=== PATIENT | male | born 1965 | race Caucasian/White ===

== ENCOUNTER → 2018-10-09 15:02 | Outpatient (CLI) | payer MEDICARE, SELFPAY ==
[2018-10-09 16:52] LABS: Prostate Specific Ag Screen 0.3 ng/mL (0.0-4.0)
[2018-10-11 20:08] LABS: Free Lambda Lt Chains 3.7 mg/L (5.7-26.3)
[2018-10-13 15:25] LABS: Alpha-1-Globulin 0.3 g/dL (0.0-0.4); Gamma Globulin 0.4 g/dL (0.4-1.8); Protein, Total 6.7 g/dL (6.0-8.5)
[2018-10-14 14:14] LABS: Immunoglobulin G, Qn 403 mg/dL (700-1600)
[2018-10-15 06:17] LABS: Immunoglobulin A, Qn 30 mg/dL (90-386); Immunoglobulin M, Qn 13 mg/dL (20-172)
== END ==
PROVIDERS: Visit Provider Internal Medicine Medical Oncology
DX: Z12.5 Encounter for screening for malignant neoplasm of prostate (principal); M89.9 Disorder of bone, unspecified
CPT/HCPCS: 36415; 82784; 83883; 84155; 84165; 86334; G0103

== ENCOUNTER → 2018-10-17 10:38 | Outpatient (CLI) | payer MEDICARE, SELFPAY ==
--- NOTE | 2018-10-17 10:50 | CT_ITS ---
CT chest w con HISTORY: Lytic bony lesions, evaluate for primary carcinoma ITS.REASON: CANCER,LYTIC BONE LESIONS ORDERING PHYSICIAN: Judith Watts MD PATIENT AGE: 53 years COMPARISON: None TECHNIQUE: Axial images obtained following the administration of 75 mL of Isovue 370 . Sagittal, and coronal reformatted images are also generated and reviewed. All CT scans at the facility use one or more dose reduction, viz: automated exposure control, ma/kV adjustment per patient size (including targeted exams where dose is matched to indication, i.e. head), or iterative reconstruction technique. FINDINGS: No mediastinal or hilar mass or adenopathy. Small hiatal hernia is present. Small amount fluid is present in superior pericardial recess. There is a calcified granuloma in the right upper lobe. There are atelectatic changes in the lung bases posteriorly. No central obstructing lesions are evident. No suspicious pulmonary nodules. Intramedullary lucency involves the posterior aspect of the left third rib at 16 mm. There is old fracture of the right third rib anteriorly and fourth rib anteriorly. There is an old right seventh rib fracture. There is mild gynecomastia Upper abdominal images show a 6.5 cm hepatic cyst centrally and a 1.6 cm hepatic cyst in the left hepatic lobe. There is a small hiatal hernia. Gallstones are present. IMPRESSION: 1. No evidence of primary lung carcinoma. 2. Atelectatic changes are present in the lung bases. 3. There is a lucent lesion of the left third rib posteriorly suspicious for a metastatic focus. 4. Cholelithiasis
[2018-10-17 12:49] LABS: Prostate Specific Ag Screen 0.3 ng/mL (0.0-4.0)
[2018-10-18 16:15] LABS: Free Lambda Lt Chains 5.4 mg/L (5.7-26.3)
[2018-10-20 12:11] LABS: Immunoglobulin G, Qn 367 mg/dL (700-1600)
[2018-10-20 13:09] LABS: Albumin 3.6 g/dL (2.9-4.4); Alpha-1-Globulin 0.3 g/dL (0.0-0.4); Alpha-2-Globulin 1.1 g/dL (0.4-1.0); Gamma Globulin 0.4 g/dL (0.4-1.8); Protein, Total 6.5 g/dL (6.0-8.5)
[2018-10-20 14:11] LABS: Immunoglobulin A, Qn 26 mg/dL (90-386); Immunoglobulin M, Qn 12 mg/dL (20-172)
== END ==
PROVIDERS: PCP Emergency Medicine; Visit Provider Internal Medicine Medical Oncology
DX: C79.51 Secondary malignant neoplasm of bone (principal); Z12.5 Encounter for screening for malignant neoplasm of prostate
CPT/HCPCS: 36415; 71260; 82784; 83883; 84155; 84165; 86334; G0103; Q9967

== ENCOUNTER → 2018-11-10 10:52 | Outpatient (POV) | payer MEDICARE, OTHER, SELFPAY ==
[2018-11-10 10:57] VITALS: BP 153/94; PULSE 125; RESP 18
--- NOTE | 2018-11-10 11:32 | HMH.PMCON ---
Assessment and Plan (1) Low back pain Current visit: No Status: Chronic Qualifiers: Chronicity: chronic Category: Medical Code(s): M54.5 - Low back pain (2) Compression fracture of L3 lumbar vertebra Current visit: No Status: Chronic Category: Medical Code(s): S32.030A - Wedge compression fracture of third lumbar vertebra, initial encounter for closed fracture - Assessment and plan all Dx Assessment and Plan for all problems:: We will plan a L3 kyphoplasty for pain relief. We will also provide him with a back brace for additional support and comfort. This note was dictated using voice recognition software and may contain errors or omissions HPI - Data of Consult Consult date: 11/10/18 Requesting Physician: Jami Majano APRN Primary Care Provider: Davis Rios MD - Consult Narrative Reason for consult: Back pain secondary to compression fracture History of present illness: Mr. Mantilla is a 53 year old male resents today for consultation in regards to his back pain secondary to an L3 compression fracture. Patient was having back pain for quite some time and was seen in the ER where they ordered a CT scan of his back. Patient has an L3 compression fracture and potential malignancy. Patient was then seen by oncology where they did a biopsy and it was determined that he did have cancer. Patient also has osteopenia noted on the CT. He rates pain 10 out of 10. Patient is currently in a halfway. Patient is good to begin chemo treatments. Patient has not had a back brace. Patient states that he would like to just take care of the pain. CC: Jami Majano APRN [facility] History I have reviewed the patient's past medical history: Yes Medical History: Denies:: Cancer, Diabetes Mellitus Type 1, Diabetes Mellitus Type 2, Internal Pacemaker, Lung Disease, MRSA, Seizures Have you ever received a pneumonia vaccine?: No Have you received a flu vaccine this season?: Yes Other Surgeries: No: Pacemaker Amputation: No Fractures: No - *Social History Smoking Status: Never smoker Alcohol Intake: never Occupational Status: disabled Housing: assisted living facility Travel in the last 8 weeks: None - Psychiatric History Expresses thoughts of harming self/others: None Suicide Plan Description: No Plan *Family Hx:: Unable to obtain Review of Systems - Review of Systems ROS General: no recent weight change, no fever, no sleep disturbances Respiratory: no cough, no shortness of air, no recurring pulmonary infections Cardiovascular/Peripheral Vascular: No chest pain, No palpitations, no edema, no shortness of breath. Gastrointestinal: no incontinence, normal bowel movements reported Genitourinary: no incontinence Musculoskeletal: Back pain Psychiatric: normal mood/ affect Neurological: [denies weakness in extremities], [denies balance issues] Meds Home Medications Medication Instructions Recorded Confirmed Type Ibuprofen [Ibuprofen 600mg Tab] 600 mg PO Q6HP PRN #20 tab 09/02/18 11/06/18 Rx risperiDONE [Risperidone] 1 mg PO BID 09/02/18 11/06/18 History Naproxen Sodium [Naproxen ER 500mg 500 mg PO BID PRN #20 tab 09/23/18 11/06/18 Rx Tab] Furosemide [Lasix 40mg tab] 40 mg PO DAILY 10/23/18 11/06/18 History Hydrocodone/Acetaminophen [[place] 1 each PO BID 10/23/18 10/23/18 History 5-325 Tablet] Allergies Allergy/AdvReac Type Severity Reaction Status Date / Time No Known Allergies Allergy Verified 11/06/18 11:22 Objective Vital signs: Pulse Resp BP 125 H 18 153/94 H 11/10/18 10:57 11/10/18 10:57 11/10/18 10:57 Narrative: Physical Exam General: Alert and oriented x3, no acute distress, pleasant and cooperative, [on room air] Lungs: Resps E/U, Symmetrical chest expansion, Eyes: PERRL Musculoskeletal: Flexion and extension of lumbar spine somewhat guarded secondary to pain, deep tendon reflexes normal, strength in upper
--- NOTE | 2018-11-10 11:35 | P.CONS_ITS ---
Assessment and Plan (1) Low back pain Current visit: No Status: Chronic Qualifiers: Chronicity: chronic Category: Medical Code(s): M54.5 - Low back pain (2) Compression fracture of L3 lumbar vertebra Current visit: No Status: Chronic Category: Medical Code(s): S32.030A - Wedge compression fracture of third lumbar vertebra, initial encounter for closed fracture - Assessment and plan all Dx Assessment and Plan for all problems:: We will plan a L3 kyphoplasty for pain relief. We will also provide him with a back brace for additional support and comfort. This note was dictated using voice recognition software and may contain errors or omissions HPI - Data of Consult Consult date: 11/10/18 Requesting Physician: Jami Majano APRN Primary Care Provider: Davis Rios MD - Consult Narrative Reason for consult: Back pain secondary to compression fracture History of present illness: Mr. Mantilla is a 53 year old male resents today for consultation in regards to his back pain secondary to an L3 compression fracture. Patient was having back pain for quite some time and was seen in the ER where they ordered a CT scan of his back. Patient has an L3 compression fracture and potential malignancy. Patient was then seen by oncology where they did a biopsy and it was determined that he did have cancer. Patient also has osteopenia noted on the CT. He rates pain 10 out of 10. Patient is currently in a [facility]. Patient is good to begin chemo treatments. Patient has not had a back brace. Patient states that he would like to just take care of the pain. CC: Jami Majano APRN [facility] History I have reviewed the patient's past medical history: Yes Medical History: Denies:: Cancer, Diabetes Mellitus Type 1, Diabetes Mellitus Type 2, Internal Pacemaker, Lung Disease, MRSA, Seizures Have you ever received a pneumonia vaccine?: No Have you received a flu vaccine this season?: Yes Other Surgeries: No: Pacemaker Amputation: No Fractures: No - *Social History Smoking Status: Never smoker Alcohol Intake: never Occupational Status: disabled Housing: assisted living facility Travel in the last 8 weeks: None - Psychiatric History Expresses thoughts of harming self/others: None Suicide Plan Description: No Plan *Family Hx:: Unable to obtain Review of Systems - Review of Systems ROS General: no recent weight change, no fever, no sleep disturbances Respiratory: no cough, no shortness of air, no recurring pulmonary infections Cardiovascular/Peripheral Vascular: No chest pain, No palpitations, no edema, no shortness of breath. Gastrointestinal: no incontinence, normal bowel movements reported Genitourinary: no incontinence Musculoskeletal: Back pain Psychiatric: normal mood/ affect Neurological: [denies weakness in extremities], [denies balance issues] Meds Home Medications Medication Instructions Recorded Confirmed Type Ibuprofen [Ibuprofen 600mg Tab] 600 mg PO Q6HP PRN #20 tab 09/02/18 11/06/18 Rx risperiDONE [Risperidone] 1 mg PO BID 09/02/18 11/06/18 History Naproxen Sodium [Naproxen ER 500mg 500 mg PO BID PRN #20 tab 09/23/18 11/06/18 Rx Tab] Furosemide [Lasix 40mg tab] 40 mg PO DAILY 10/23/18 11/06/18 History Hydrocodone/Acetaminophen [[place] 1 each PO BID 10/23/18 10/23/18 History 5-325 Tablet] Allergies
== END ==
PROVIDERS: PCP Emergency Medicine; Visit Provider Clinical Nurse Specialist Family Health
DX: S32.030A Wedge compression fracture of third lumbar vertebra, initial encounter for closed fracture (principal)
CPT/HCPCS: 99202

== ENCOUNTER → 2018-11-12 09:19 | Outpatient (CLI) | payer MEDICARE, SELFPAY | PROVIDERS: PCP Internal Medicine Medical Oncology; Visit Provider Internal Medicine Medical Oncology | DX: M85.89 Other specified disorders of bone density and structure, multiple sites (principal); S32.030A Wedge compression fracture of third lumbar vertebra, initial encounter for closed fracture ==

== ENCOUNTER 2018-11-17 13:25 | Outpatient (CLI) | payer MEDICARE, OTHER, SELFPAY ==
[2018-11-17 13:20] VITALS: BP 122/74; PULSE 68; RESP 20; TEMP 36.9; O2SAT 94
[2018-11-17 13:40] VITALS: TEMP 36.9; O2SAT 95
== END 2018-11-17 13:45 | disposition home or self-care (01) ==
LOC: INF 13:25
PROVIDERS: Visit Provider Internal Medicine Medical Oncology
DX: Z51.11 Encounter for antineoplastic chemotherapy (principal); C90.00 Multiple myeloma not having achieved remission
CPT/HCPCS: 96401; J9041

== ENCOUNTER 2018-11-24 13:00 | Outpatient (CLI) | payer MEDICARE, OTHER, SELFPAY ==
[2018-11-24 13:35] VITALS: BP 128/74; PULSE 68; RESP 20; TEMP 36.9; O2SAT 95
== END 2018-11-24 14:00 | disposition home or self-care (01) ==
LOC: INF 13:16
PROVIDERS: Visit Provider Internal Medicine Medical Oncology
DX: C90.00 Multiple myeloma not having achieved remission (principal)
CPT/HCPCS: 96401; J9041

== ENCOUNTER 2018-11-27 12:05 | Outpatient (CLI) | payer MEDICARE, OTHER, SELFPAY ==
[2018-11-27 12:29] VITALS: BP 108/51; PULSE 82; RESP 18; TEMP 36.6; O2SAT 97
== END 2018-11-27 13:00 | disposition home or self-care (01) ==
LOC: INF 15:12
PROVIDERS: Visit Provider Internal Medicine Medical Oncology
DX: Z51.11 Encounter for antineoplastic chemotherapy (principal); C90.00 Multiple myeloma not having achieved remission
CPT/HCPCS: 96401; J9041

== ENCOUNTER → 2018-12-02 08:50 | Outpatient (POV) | payer MEDICARE, OTHER, SELFPAY ==
[2018-12-02 09:01] VITALS: BP 136/84; PULSE 99; RESP 18; O2SAT 99; BMI 25.7
--- NOTE | 2018-12-02 09:12 | HMH.PAINSOAP ---
[facility] Pain Management SOAP Note Subjective:: Patient is a pleasant 53-year-old white male who presents today for follow-up after L3 kyphoplasty. Patient states that he still has generalized pain however his back pain is significantly better. Patient is continuing therapy. He is trying to be more active. He rates his overall body pain a 9 out of 10. Patient is still following up with oncology. ROS General: no recent weight change, no fever, no sleep disturbances Respiratory: no cough, no shortness of air, no recurring pulmonary infections Cardiovascular/Peripheral Vascular: No chest pain, No palpitations, no edema, no shortness of breath. Musculoskeletal: Back pain, generalized pain Psychiatric: normal mood/ affect Neurological: Weakness bilateral lower extremities, needs stability while walking Objective:: Physical Exam General: Alert and oriented x3, no acute distress, pleasant and cooperative, [on room air] Lungs: Resps E/U, Symmetrical chest expansion, Eyes: PERRL Musculoskeletal: Flexion and extension of lumbar spine somewhat guarded secondary to pain, deep tendon reflexes normal, strength in upper and lower extremities [4/5], [abnormal gait noted] Neurological: speech clear, paving bed maker equal, no gross sensory deficits Assessment:: Post kyphoplasty, compression fracture L3, multiple myeloma Plan:: We will follow-up with the patient in 2 months and reassess his symptoms at that time. Patient's been instructed to call the office if he has any issues prior to his next appointment. Dr. Hernandez has reviewed this note and agrees with this plan of care. This note was dictated using voice recognition software and may contain errors or omissions
--- NOTE | 2018-12-02 09:18 | P.CONS_ITS ---
[facility] Pain Management SOAP Note Subjective:: Patient is a pleasant 53-year-old white male who presents today for follow-up after L3 kyphoplasty. Patient states that he still has generalized pain however his back pain is significantly better. Patient is continuing therapy. He is trying to be more active. He rates his overall body pain a 9 out of 10. Patient is still following up with oncology. ROS General: no recent weight change, no fever, no sleep disturbances Respiratory: no cough, no shortness of air, no recurring pulmonary infections Cardiovascular/Peripheral Vascular: No chest pain, No palpitations, no edema, no shortness of breath. Musculoskeletal: Back pain, generalized pain Psychiatric: normal mood/ affect Neurological: Weakness bilateral lower extremities, needs stability while walking Objective:: Physical Exam General: Alert and oriented x3, no acute distress, pleasant and cooperative, [on room air] Lungs: Resps E/U, Symmetrical chest expansion, Eyes: PERRL Musculoskeletal: Flexion and extension of lumbar spine somewhat guarded secondary to pain, deep tendon reflexes normal, strength in upper and lower extremities [4/5], [abnormal gait noted] Neurological: speech clear, user experience lead equal, no gross sensory deficits Assessment:: Post kyphoplasty, compression fracture L3, multiple myeloma Plan:: We will follow-up with the patient in 2 months and reassess his symptoms at that time. Patient's been instructed to call the office if he has any issues prior to his next appointment. Dr. Hernandez has reviewed this note and agrees with this plan of care. This note was dictated using voice recognition software and may contain errors or omissions
== END ==
PROVIDERS: PCP Emergency Medicine; Visit Provider Clinical Nurse Specialist Family Health
DX: S32.030A Wedge compression fracture of third lumbar vertebra, initial encounter for closed fracture (principal); Z09 Encounter for follow-up examination after completed treatment for conditions other than malignant neoplasm; Z98.890 Other specified postprocedural states
CPT/HCPCS: 99213

== ENCOUNTER 2018-12-08 12:36 | Outpatient (CLI) | payer MEDICARE, OTHER, SELFPAY ==
[2018-12-08 12:41] VITALS: BMI 35.7
[2018-12-08 13:16] VITALS: BP 156/80; PULSE 105; RESP 20; TEMP 36.6; O2SAT 96
== END 2018-12-08 13:31 | disposition home or self-care (01) ==
LOC: INF 12:36
PROVIDERS: Visit Provider Internal Medicine Hematology & Oncology
DX: C90.00 Multiple myeloma not having achieved remission (principal); Z51.11 Encounter for antineoplastic chemotherapy
CPT/HCPCS: 96401; J9041

== ENCOUNTER 2018-12-11 13:05 | Outpatient (CLI) | payer MEDICARE, OTHER, SELFPAY ==
[2018-12-11 13:41] VITALS: BP 145/94; PULSE 105; RESP 18; TEMP 36.4; O2SAT 98
== END 2018-12-11 14:00 | disposition home or self-care (01) ==
LOC: INF 14:51
PROVIDERS: Visit Provider Internal Medicine Medical Oncology
DX: Z51.11 Encounter for antineoplastic chemotherapy (principal); C90.00 Multiple myeloma not having achieved remission
CPT/HCPCS: 96401; J9041

== ENCOUNTER 2018-12-15 12:56 | Outpatient (CLI) | payer MEDICARE, OTHER, SELFPAY ==
[2018-12-15 13:19] VITALS: BP 140/62; PULSE 68; RESP 20; TEMP 36.9; O2SAT 95
[2018-12-15 13:55] VITALS: BP 135/74; PULSE 68; O2SAT 95
== END 2018-12-15 13:57 | disposition home or self-care (01) ==
LOC: INF 12:56
PROVIDERS: Visit Provider Internal Medicine Medical Oncology
DX: Z51.11 Encounter for antineoplastic chemotherapy (principal); C90.00 Multiple myeloma not having achieved remission
CPT/HCPCS: 96401; J9041

== ENCOUNTER 2018-12-18 12:45 | Outpatient (CLI) | payer MEDICARE, OTHER, SELFPAY ==
[2018-12-18 13:45] VITALS: BP 127/78; PULSE 101; RESP 16; TEMP 36.9; O2SAT 96
[2018-12-18 16:35] LABS: Basophils % 0.1 % (0.1-2.0); Eosinophils # 0.1 K/mm3 (0.0-0.4); Eosinophils % 1.2 % (0.1-12.0); Hematocrit 26.8 % (42.0-52.0); Hemoglobin 8.8 g/dL (14.1-18.0); Lymphocytes # 1.2 K/mm3 (0.7-4.5); Lymphocytes % 12.8 % (10-50); Mean Corpuscular HGB Conc 32.8 g/dL (31.8-35.4); Mean Corpuscular Hemoglobin 32.1 pg (27.0-31.2); Mean Corpuscular Volume 97.8 fl (80-94); Mean Platelet Volume 12.3 fl (7.4-10.4); Monocytes # 0.3 K/mm3 (0.1-1.0); Monocytes % 3.8 % (1.7-9.3); Neutrophils # 7.5 K/mm3 (1.8-7.8); Neutrophils % 82.2 % (37.0-80.0); Platelet Count 158 K/mm3 (142-424); Red Blood Count 2.73 M/mm3 (4.60-6.20); Red Cell Distribution Width 14.6 % (11.5-17.5); White Blood Count 9.1 K/mm3 (4.8-10.8)
[2018-12-18 17:30] LABS: Alanine Aminotransferase 25 U/L (12-78); Albumin Level 3.1 gm/dL (3.4-5.0); Albumin/Globulin Ratio 1.1 (1.1-1.8); Alkaline Phosphatase 96 U/L (46-116); Anion Gap 13.7 mEq/L (5-15); Aspartate Amino Transferase 6 U/L (15-37); Bilirubin,Total 0.3 mg/dL (0.2-1.0); Blood Urea Nitrogen 15 mg/dL (7-18); Calcium 8.9 mg/dL (8.5-10.1); Carbon Dioxide 28 mmol/L (21.0-32.0); Chloride 100 mmol/L (98-107); Creatinine,Serum 1.41 mg/dL (0.70-1.30); Estimated Glomerular Filt Rate 53 ml/min (>60); GFR (African American) 64 ML/MIN (>60); Globulin 2.8 gm/dl (1.3-3.2); Glucose 91 mg/dL (74-106); Potassium 3.7 mmoL/L (3.5-5.1); Sodium 138 mmol/L (136-145); Total Protein,Serum 5.9 gm/dL (6.4-8.2)
[2018-12-20 17:11] LABS: Free Lambda Lt Chains 3.2 mg/L (5.7-26.3)
[2018-12-22 15:12] LABS: Alpha-1-Globulin 0.4 g/dL (0.0-0.4); Alpha-2-Globulin 1.1 g/dL (0.4-1.0); Gamma Globulin 0.3 g/dL (0.4-1.8); Protein, Total 5.8 g/dL (6.0-8.5)
== END 2018-12-18 14:00 | disposition home or self-care (01) ==
PROVIDERS: Visit Provider Internal Medicine Medical Oncology
DX: Z51.11 Encounter for antineoplastic chemotherapy (principal); C90.00 Multiple myeloma not having achieved remission
CPT/HCPCS: 36415; 80053; 83883; 84155; 84165; 85025; 96401; J9041

== ENCOUNTER 2018-12-31 17:44 | Inpatient (IN) ==
--- NOTE | 2018-12-31 18:27 | Emergency Department Note ---
ED Disposition Condition on Discharge: Fair - Critical Care Critical Care Time: No <Alex Ordonez - Last Filed: 12/31/18 20:03> <Davis Rios - Last Filed: 12/31/18 23:59> Clinical Impression: Cancer, Renal insufficiency, Fracture of transverse process of spine without spinal cord lesion Low back pain Qualifiers: Chronicity: chronic Back pain laterality: unspecified Sciatica presence: without sciatica Qualified Code(s): M54.5 - Low back pain; G89.29 - Other chronic pain Myeloma Qualifiers: Multiple myeloma remission status: not in remission Qualified Code(s): C90.00 - Multiple myeloma not having achieved remission Anemia Qualifiers: Anemia type: unspecified type Qualified Code(s): D64.9 - Anemia, unspecified Osteopenia Qualifiers: Osteopenia location: multiple sites Qualified Code(s): M85.89 - Other specified disorders of bone density and structure, multiple sites Compression fracture of first lumbar vertebra Qualifiers: Encounter type: initial encounter Fracture type: closed Qualified Code(s): S32.010A - Wedge compression fracture of first lumbar vertebra, initial encounter for closed fracture Compression fracture of fifth lumbar vertebra Qualifiers: Encounter type: initial encounter Fracture type: closed Qualified Code(s): S32.050A - Wedge compression fracture of fifth lumbar vertebra, initial encounter for closed fracture Compression fracture of L3 lumbar vertebra Qualifiers: Encounter type: subsequent encounter Fracture type: closed Fracture healing: with delayed healing Qualified Code(s): S32.030G - Wedge compression fracture of third lumbar vertebra, subsequent encounter for fracture with delayed healing Compression fracture of fourth lumbar vertebra Qualifiers: Encounter type: initial encounter Fracture type: closed Qualified Code(s): S32.040A - Wedge compression fracture of fourth lumbar vertebra, initial encounter for closed fracture Compression fracture of L2 lumbar vertebra Qualifiers: Encounter type: initial encounter Fracture type: closed Qualified Code(s): S32.020A - Wedge compression fracture of second lumbar vertebra, initial encounter for closed fracture Disposition: Admitted as Observation Attestation: On 12/31/18, the high probability of a clinically significant, sudden or life threatening deterioration of the following system(s) required my full and direct attention, intervention and personal management. The time I documented below is in addition to time spent performing reported procedures but includes the following listed in this critical care notation. Medical Decision Making - Jere Inquiry Pt receiving controlled substance: No - Physician Consults Physician Consulted: Gabriel Time: 19:20 Reason -: Pt condition Comment/Response: Discussed patient. He states that he saw the patient today at lunch. Patient was sitting in his chair and using a walker as he has been doing for the past few days. [facility]. He requests that patient be kept here until he arrives at 8 PM to evaluate. <Alex Ordonez - Last Filed: 12/31/18 20:03> - Lab Data Result diagrams: 12/31/18 20:25 12/31/18 20:25 <Davis Rios - Last Filed: 12/31/18 23:59> Vital Signs: 12/31/18 17:45 12/31/18 19:01 12/31/18 19:30 Temperature 99.3 F Temperature Source Oral Pulse Rate [Right] 113 H 97 H 96 H Respiratory Rate 20 20 Blood Pressure [Right Arm] 157/93 H 130/91 H 116/86 Blood Pressure Mean [Right Arm] 114 104 96 Blood Pressure Source [Right Arm] Automatic Cuff Automatic Cuff Automatic Cuff Blood Pressure Position [Right Arm] Supine Supine Supine 02 Sat by Pulse Oximetry 96 96 96 Oxygen Delivery Method Room Air Room Air Room Air 12/31/18 20:00 12/31/18 20:30 12/31/18 21:30 Temperature Temperature Source Pulse Rate [Right] 92 H 96 H 112 H Respiratory Rate 20 20 20 Blood Pressure [Right Arm] 124/81 135/94 H 145/98 H Blood Pressure Mean [Right Arm] 95 107 113 Blood Pressure Source [Right Arm] Automatic Cuff Automatic Cuff Automatic Cuff Blood Pressure Position [Right Arm] Supine Supine Supine 02 Sat by Pulse Oximetry 96 98 98 Oxygen Delivery Method Room Air Room Air Room Air 12/31/18 22:30 12/31/18 23:30 Temperature Temperature Source Pulse Rate [Right] 96 H 86 Respiratory Rate 18 18 Blood Pressure [Right Arm] 139/87 122/74 Blood Pressure Mean [Right Arm] 104 90 Blood Pressure Source [Right Arm] Automatic Cuff Automatic Cuff Blood Pressure Position [Right Arm] Supine Supine 02 Sat by Pulse Oximetry 98 98 Oxygen Delivery Method Room Air Room Air - Lab Data Lab Results 12/31/18 20:25: WBC 6.0, RBC 2.83 L, Hgb 9.0 L, Hct 27.5 L, MCV 97.0 H, MCH 31.9 H, MCHC 32.9, RDW 14.9, Plt Count 455 H, MPV 8.1, Neut % (Auto) 71.5, Lymph % (Auto) 17.0, [place] % (Auto) 10.5 H, Eos % (Auto) 0.6, Baso % (Auto) 0.5, Neut # (Auto) 4.3, Lymph # (Auto) 1.0, [place] # (Auto) 0.6, Eos # (Auto) 0.0, Baso # (Auto) 0.0 12/31/18 20:25: ESR 84 H 12/31/18 20:25: Sodium 140, Potassium 4.2, Chloride 103, Carbon Dioxide 27, Anion Gap 14.2, BUN 21 H, Creatinine 1.86 H, Estimated Creat Clear 44, Estimated GFR 38 L, Est GFR ( Amer) 46 L, Glucose 103, Calcium 9.3, Total Bilirubin 0.3, Direct Bilirubin 0.1, Indirect Bilirubin 0.2, AST 11 L, ALT 18, Alkaline Phosphatase 107, Troponin I < 0.02, Total Protein 6.5, Albumin 2.9 L 12/31/18 20:25: Lipase 120 Orders (Tests/Meds): ED MEDICATIONS Generic Name Dose Route Start Last Admin Trade Name Freq PRN Reason Stop Dose Admin Sodium Chloride 10 ml 12/31/18 20:27 Saline Flush 10ml Syringe IV 01/30/19 20:26 NEEDED PRN Maintain IV Site Discontinued Medications Generic Name Dose Route Start Last Admin Trade Name Freq PRN Reason Stop Dose Admin Ketorolac Tromethamine 30 mg 12/31/18 22:32 12/31/18 22:32 Toradol 30mg/Ml Vial IV 12/31/18 22:33 30 mg ONCE ONE Administration Morphine Sulfate 4 mg 12/31/18 22:45 12/31/18 22:54 Morphine 4mg/Ml Syringe IV 12/31/18 22:46 4 mg ONCE ONE Administration Ondansetron HCl 4 mg 12/31/18 22:45 12/31/18 22:54 Zofran 4mg/2ml Vial IV 12/31/18 22:46 4 mg ONCE ONE Administration ORDERS Category Date Time Status CT abdomen pelvis wo con Stat Cat Scan 12/31/18 20:[address] cervical spine wo con Routine Cat Scan 12/31/18 20:[address] lumbar spine wo con Stat Cat Scan 12/31/18 20:[address] thoracic spine wo con Stat Cat Scan 12/31/18 20:30 Taken XR chest AP Stat Exams 12/31/18 20:28 Taken UA [Urinalysis and Microscopic] Stat Lab 12/31/18 20:26 Ordered Medical Decision Narrative: Note from Dr. Watts Dec 18 indicates pt with lytic bone lesion of L3 and ileium based on ct scan. bone marrow bx c/w plasma cell myeloma. treating using RVD. continue current pain regimen ms contin 15 mg q 12 hr and percocet 10 mg q 4-6 hr prn. will eventually add zometa to regimen given his bone disease. proceed with treatment today. labs today including myeloma panel. he is a ash of the [facility]. will also plan to refer to for eval for possible bone marrow transplant. T-spine CT November: IMPRESSION: 1. No evidence of acute compression fracture of the thoracic spine. The abnormality noted on a plain film is likely related to bony overlap from the patient's scoliosis and degenerative change. 2. There is mild wedging of L1 and L2 which has developed since 09/23/2018. No retropulsion is evident. There is loss of height along the inferior endplate of L1 by approximately 25% and of the superior endplate of L2 by approximately 30% Dictated By: Janak Couch MD Signed By: <Electronically signed by Janak Couch MD in OV> 12/25/18 1311 L-spine CT August: IMPRESSION: 1. Mild acute wedge compression fracture of L3 which is felt to be a pathologic fracture. No obvious retropulsed fragments. 2. Lytic lesions of L3 and of the left ilium suspicious for metastatic disease. Suggest chest x-ray to look for possible primary. Dictated By: Janak Couch MD Signed By: <Electronically signed by Janak Couch MD in OV> 09/23/18 1410 8:00 PM: At shift change, I have discussed the patient with Dr. Rios, who will assume care of the patient at this time. I have discussed all clinical information including history, physical and diagnostic study results. Preliminary diagnoses based on information available at this point have been recorded by me. Controlled substance administration and critical care statement are also preliminary, as of the time of handoff. (Alex Ordonez) General Adult HPI - General Mode of Arrival: EMS Limitations: Physical Limitations Description of Symptoms (Recalled from ER Triage Doc. by RN): chronic back pain that is worse than normal. <Alex Ordonez - Last Filed: 12/31/18 20:03> <Davis Rios - Last Filed: 12/31/18 23:59> - General Chief complaint: Back Pain/Injury Stated complaint: back pain Time Seen by Provider: 12/31/18 18:27 - History of Present Illness HPI narrative: Brought in by ambulance from [facility]. He states that the physical therapist called an ambulance to have him brought over because he told the therapist he could not get up and walk because of his lower back pain. He states that his back pain is chronic, worse for several days. He has myeloma and is getting chemotherapy. His oncologist is Dr. Watts. He is on MS Contin and Percocet 10 mg for pain. He tells me that he is not otherwise sick. Denies fever. Says that when his back tightens up it makes it difficult for him to breathe. Denies abdominal pain, vomiting, diarrhea, or urinary symptoms. Denies cough. He tells me that he does not want any testing or treatment in the emergency room. He does not want an IV or blood work. He does not want any scans of any sort. He says he is already had scans. I reviewed his recent visits. He was in this emergency department on 12/25/18 for evaluation of a fever. I do not see any lab test done on that day, but he was discharged on Cipro. He had thoracic spine x-rays and CAT scans on that same date, but I cannot tell if they were done through the emergency room. These showed upper lumbar compression fractures that were new since his previous scan in August. He was diagnosed with thoracic and lumbar back pain in the emergency room, but I do not see any recording of x-ray or CT scan results were any diagnosis of compression fractures. (Alex Ordonez) - Related Data Home Medications Medication Instructions Recorded Confirmed risperiDONE [Risperidone] 1 mg PO BID 09/02/18 12/18/18 Furosemide [Lasix 40mg tab] 40 mg PO DAILY 10/23/18 12/18/18 Hydrocodone/Acetaminophen [Alvo 1 each PO BID 10/23/18 12/18/18 5-325 Tablet] Previous Rx's Medication Instructions Recorded Ibuprofen [Ibuprofen 600mg Tab] 600 mg PO Q6HP PRN #20 tab 09/02/18 Naproxen Sodium [Naproxen ER 500mg 500 mg PO BID PRN #20 tab 09/23/18 Tab] Ciprofloxacin HCl [Cipro 500mg 500 mg PO BID 7 Days #14 tab 12/25/18 Tab] Allergies Allergy/AdvReac Type Severity Reaction Status Date / Time No Known Allergies Allergy Verified 12/18/18 15:19 [facility] History - Hepatitis A Screen Drug use history?: No High risk sexual behaviors?: No History of sexually transmitted infection?: No Currently employed?: No Childcare worker?: No Do you have indoor plumbing?: Yes Do you have electricity?: Yes Medical History: Reports:: Cancer (spinal) Denies:: Diabetes Mellitus Type 1, Diabetes Mellitus Type 2, Internal Pacemaker, Lung Disease, MRSA, Seizures Laterality Cases: Left: Arthroscopy Hip, Total Hip Replacement Other Surgeries: No: Pacemaker Amputation: No Fractures: No - Social History Educational Level: Completed High School Smoking Status: Never smoker Alcohol Intake: never Occupational Status: unemployed, disabled Housing: assisted living facility - Psychiatric History Expresses thoughts of harming self/others: None Suicide Plan Description: No Plan Family Hx:: Unable to obtain <Alex Ordonez - Last Filed: 12/31/18 20:03> - Hepatitis A Screen Attestation statement:: This patient has been screened for Hepatitis A risk factors. ROS Obtained: Yes All systems reviewed & no additional complaints - Constitutional Constitutional: Denies fever(s), Reports weakness - Cardiovascular Cardiovascular: Denies chest pain - Respiratory Respiratory: Yes dyspnea (states related to back pain) - Gastrointestinal Gastrointestingal: Denies: abdominal pain, diarrhea, vomiting - Genitourinary Male Genitourinary: Denies difficulty urinating - Musculoskeletal Musculoskeletal: Reports back pain <Alex Ordonez - Last Filed: 12/31/18 20:03> Physical Exam - General General appearance: alert, in no apparent distress - Head Head exam: atraumatic, normocephalic - Eye Eye exam: Present: PERRL, EOMI - ENT ENT exam: Present: mucous membranes moist - Neck Neck exam: Present: normal inspection, trachea midline - Chest Chest inspection: Present: normal inspection, symmetric chest wall rise - Respiratory Respiratory exam: Present: normal lung sounds bilaterally. Absent: respiratory distress - Cardiovascular Cardiovascular exam: Present: normal rhythm, tachycardia, normal heart sounds - Abdominal Exam Abdominal exam: Present: distention, tenderness Abdominal tenderness: Present: diffuse - Extremities Exam Extremities exam: Present: other (Bilateral venous stasis changes and 1+ pitting edema) - Neurological Exam Neurological exam: Present: alert, oriented X3, CN II-XII intact, other (Sensory and motor intact in all 4 extremities and symmetric, no focal findings). Absent: motor sensory deficit - Psychiatric Psychiatric exam: Present: flat affect - Skin Skin exam: Present: warm, dry <Alex Ordonez - Last Filed: 12/31/18 20:03>
[2018-12-31 20:42] LABS: Basophils % 0.5 % (0.1-2.0); Eosinophils % 0.6 % (0.1-12.0); Hematocrit 27.5 % (42.0-52.0); Mean Corpuscular HGB Conc 32.9 g/dL (31.8-35.4); Mean Corpuscular Hemoglobin 31.9 pg (27.0-31.2); Mean Platelet Volume 8.1 fl (7.4-10.4); Monocytes # 0.6 K/mm3 (0.1-1.0); Monocytes % 10.5 % (1.7-9.3); Neutrophils # 4.3 K/mm3 (1.8-7.8); Neutrophils % 71.5 % (37.0-80.0); Platelet Count 455 K/mm3 (142-424); Red Blood Count 2.83 M/mm3 (4.60-6.20); Red Cell Distribution Width 14.9 % (11.5-17.5)
[2018-12-31 20:51] LABS: Alanine Aminotransferase 18 U/L (12-78); Albumin Level 2.9 gm/dL (3.4-5.0); Alkaline Phosphatase 107 U/L (46-116); Anion Gap 14.2 mEq/L (5-15); Aspartate Amino Transferase 11 U/L (15-37); Bilirubin,Direct 0.1 mg/dL (0.0-0.2); Bilirubin,Indirect 0.2 mg/dL (0.0-0.9); Bilirubin,Total 0.3 mg/dL (0.2-1.0); Blood Urea Nitrogen 21 mg/dL (7-18); Calcium 9.3 mg/dL (8.5-10.1); Carbon Dioxide 27 mmol/L (21.0-32.0); Chloride 103 mmol/L (98-107); Glucose 103 mg/dL (74-106); Potassium 4.2 mmoL/L (3.5-5.1); Sodium 140 mmol/L (136-145); Total Protein,Serum 6.5 gm/dL (6.4-8.2)
[2019-01-01 07:28] LABS: Anion Gap 13.2 mEq/L (5-15); Calcium 8.9 mg/dL (8.5-10.1); Potassium 4.2 mmoL/L (3.5-5.1)
--- NOTE | 2019-01-01 07:28 | Pharmacy Consult Notes ---
[facility] Pharmacy VTE Monitoring - Patient Demographics Admission date: 12/31/18 Report Date: 01/01/19 Time: 07:28 Allergies/Adverse Reactions: Patient Allergies No Known Allergies Allergy (Verified 12/18/18 15:19) Height: 1.65 m Weight: 78.642 kg Patient Problems: Current Active Problems Low back pain (Chronic) Compression fracture of L3 lumbar vertebra (Chronic) Cancer (Acute) Myeloma (Acute) Anemia (Acute) Renal insufficiency (Acute) Osteopenia (Acute) Compression fracture of first lumbar vertebra (Acute) Compression fracture of fifth lumbar vertebra (Acute) Compression fracture of fourth lumbar vertebra (Acute) Compression fracture of L2 lumbar vertebra (Acute) Fracture of transverse process of spine without spinal cord lesion (Acute) - VTE Risk Labs: VTE Related Lab Results Hgb 9.0 g/dL (14.1-18.0) L 12/31/18 20:25 Hct 27.5 % (42.0-52.0) L 12/31/18 20:25 Plt Count 455 K/mm3 (142-424) H 12/31/18 20:25 BUN 21 mg/dL (7-18) H 12/31/18 20:25 Creatinine 1.86 mg/dL (0.70-1.30) H 12/31/18 20:25 Estimated Creat Clear 44 mL/min (50-200) 12/31/18 20:25 Was VTE Risk Assessment Performed: Yes VTE Score: 6 VTE Risk Level: Moderate Risk - Prophylaxis VTE Prophylaxis Ordered?: Yes Types of VTE Prophylaxis: TEDS Knee High Location of Applied Device: Bilateral Lower Extremeties - VTE Diagnosis Confirmed Treatment or plan recommended: Continue Current Treatment
[2019-01-01 07:29] LABS: Basophils % 0.5 % (0.1-2.0); Eosinophils # 0.1 K/mm3 (0.0-0.4); Hematocrit 24.5 % (42.0-52.0); Hemoglobin 8.1 g/dL (14.1-18.0); Lymphocytes # 0.9 K/mm3 (0.7-4.5); Lymphocytes % 20.1 % (10-50); Mean Corpuscular Hemoglobin 32.5 pg (27.0-31.2); Mean Corpuscular Volume 98.7 fl (80-94); Mean Platelet Volume 7.8 fl (7.4-10.4); Monocytes # 0.4 K/mm3 (0.1-1.0); Monocytes % 8.8 % (1.7-9.3); Neutrophils % 68.6 % (37.0-80.0); Platelet Count 420 K/mm3 (142-424); Red Blood Count 2.48 M/mm3 (4.60-6.20); Red Cell Distribution Width 15.1 % (11.5-17.5); White Blood Count 4.4 K/mm3 (4.8-10.8)
--- NOTE | 2019-01-01 09:07 | History & Physical Report ---
*Admission Date: 12/31/18 *Chief complaint: Uncontrolled lower back pain *History of present illness: Brought in by ambulance from [facility]. He states that the physical therapist called an ambulance to have him brought over because he told the therapist he could not get up and walk because of his lower back pain. He states that his back pain is chronic, worse for several days. He has myeloma and is getting chemotherapy. His oncologist is Dr. Watts. He is on MS Contin and Percocet 10 mg for pain. [facility] History I have reviewed the patient's past medical history: Yes Medical History: Reports:: Cancer (spinal) Denies:: Diabetes Mellitus Type 1, Diabetes Mellitus Type 2, Internal Pacemaker, Lung Disease, MRSA, Seizures *Have you ever received a pneumonia vaccine?: No *Have you received a flu vaccine this season?: Yes (Fall 2017) Other Medical History: Reports: Chemotherapy Laterality Cases: Left: Arthroscopy Hip, Total Hip Replacement Other Surgeries: No: Pacemaker Amputation: No Fractures: No - *Social History Educational Level: Completed High School Smoking Status: Never smoker Alcohol Intake: former Alcohol Intake Frequency:: holidays/special occasions only *Occupational Status:: unemployed, disabled Housing: assisted living facility Household Members: other *Travel in the last 8 weeks: None - Psychiatric History Expresses thoughts of harming self/others: None Suicide Plan Description: No Plan Family Hx:: Unable to obtain Review of Systems - Review of Systems Review of systems:: pertinent systems reviewed and negative unless documented below - Constitutional Reports weakness - Eyes Denies change in vision - ENT Denies dizziness - *Cardiovascular Denies chest pain - *Respiratory Denies chest congestion, Denies cough - *Gastrointestinal Denies abdominal pain - *Genitourinary Reports difficulty urinating, Reports urinary incontinence Comments: Incont D/T inability to stand and walk D/T pain - *Musculoskeletal Reports abnormal walking, Reports back pain, Reports limited joint movement, Reports muscle weakness, Reports radiating pain into limb - Integumentary/Breasts Denies rash - *Neurologic Reports abnormal walking, Reports radiating pain, Reports weakness, Denies tingling/numbness/burning sensations - Psychiatric Denies abnormal sleep pattern, Denies anxiety - Endocrine Denies cold intolerance, Denies excessive sweating - Hematologic/Lymphatic Denies easy bleeding, Denies easy bruising - Allergic/Immunologic Denies GI upset with certain foods Meds Home Medications Medication Instructions Recorded Confirmed Type Ibuprofen [Ibuprofen 600mg Tab] 600 mg PO Q6HP PRN #20 tab 09/02/18 01/01/19 Rx risperiDONE [Risperidone] 1.5 mg PO BID 09/02/18 01/01/19 History Naproxen Sodium [Naproxen ER 500mg 500 mg PO BID PRN #20 tab 09/23/18 01/01/19 Rx Tab] Furosemide [Lasix 40mg tab] 40 mg PO DAILY 10/23/18 01/01/19 History Ciprofloxacin HCl [Cipro 500mg 500 mg PO BID 7 Days #14 tab 12/25/18 01/01/19 Rx Tab] Acyclovir [Zovirax] 400 mg PO BID 01/01/19 01/01/19 History Dexamethasone [Decadron] 4 mg PO DIRECTED 01/01/19 01/01/19 History Lactulose [Lactulose 10gm/15ml 10 gm PO DAILY 01/01/19 01/01/19 History Oral Soln] Lenalidomide [Revlimid] 25 mg PO DIRECTED 01/01/19 01/01/19 History Morphine Sulfate [Morphine Sulf IR 15 mg PO BID 01/01/19 01/01/19 History 15mg Tab] Oxycodone HCl/Acetaminophen 1 tab PO Q4-6H PRN 01/01/19 01/01/19 History [Percocet 10-325 mg Tablet] Prochlorperazine Maleate 10 mg PO Q4HP PRN 01/01/19 01/01/19 History [Compazine] Allergies Allergy/AdvReac Type Severity Reaction Status Date / Time No Known Allergies Allergy Verified 12/18/18 15:19 Exam Vital signs and Labs for Last 24 Hours: Temp Pulse Resp BP Pulse Ox 98.4 F 103 H 18 163/100 H 95 01/01/19 07:58 01/01/19 07:58 01/01/19 07:58 01/01/19 07:58 01/01/19 07:58 Laboratory Results - last 24 hr 12/31/18 20:25: WBC 6.0, RBC 2.83 L, Hgb 9.0 L, Hct 27.5 L, MCV 97.0 H, MCH 31.9 H, MCHC 32.9, RDW 14.9, Plt Count 455 H, MPV 8.1, Neut % (Auto) 71.5, Lymph % (Auto) 17.0, [place] % (Auto) 10.5 H, Eos % (Auto) 0.6, Baso % (Auto) 0.5, Neut # (Auto) 4.3, Lymph # (Auto) 1.0, [place] # (Auto) 0.6, Eos # (Auto) 0.0, Baso # (Auto) 0.0 12/31/18 20:25: ESR 84 H 12/31/18 20:25: Sodium 140, Potassium 4.2, Chloride 103, Carbon Dioxide 27, Anion Gap 14.2, BUN 21 H, Creatinine 1.86 H, Estimated Creat Clear 44, Estimated GFR 38 L, Est GFR ( Amer) 46 L, Glucose 103, Calcium 9.3, Total Bilirubin 0.3, Direct Bilirubin 0.1, Indirect Bilirubin 0.2, AST 11 L, ALT 18, Alkaline Phosphatase 107, Troponin I < 0.02, Total Protein 6.5, Albumin 2.9 L 12/31/18 20:25: Lipase 120 01/01/19 06:48: WBC 4.4 L D, RBC 2.48 L, Hgb 8.1 L, Hct 24.5 L, MCV 98.7 H, MCH 32.5 H, MCHC 33.0, RDW 15.1, Plt Count 420, MPV 7.8, Neut % (Auto) 68.6, Lymph % (Auto) 20.1, [place] % (Auto) 8.8, Eos % (Auto) 2.0, Baso % (Auto) 0.5, Neut # (Auto) 3.0, Lymph # (Auto) 0.9, [place] # (Auto) 0.4, Eos # (Auto) 0.1, Baso # (Auto) 0.0 01/01/19 06:48: Sodium 140, Potassium 4.2, Chloride 105, Carbon Dioxide 26, Anion Gap 13.2, BUN 20 H, Creatinine 1.91 H, Estimated Creat Clear 50, Estimated GFR 37 L, Est GFR ( Amer) 45 L, Glucose 96, Calcium 8.9 I & O for Last 24 hours: Intake & Output 12/29/18 12/30/18 12/31/18 01/01/19 23:59 23:59 23:59 23:59 Intake Total 510 / 510 Balance 510 / 510 Weight 150 lb 173 lb 6 oz - Constitutional moderate distress, chronically ill appearing - *Routine HEENT Exam Head: Present: normocephalic Eye: Present: EOMI, PERRL ENT: Present: mucous membranes moist - *Routine Neck Exam Present: supple, full ROM - *Routine Respiratory Exam Present: decreased breath sounds, CTA bilaterally - *Routine Cardiovascular Exam Present: RRR, Normal S1, Normal S2 - *Routine Abdominal Exam Present: soft, normoactive bowel sounds - *Routine Extremities Exam Present: edema - Routine Back/Spine/Pelvis Exam Back/Spine: Present: pain with flexion, pain with lateral flexion, pain with ro tation, abnormal straight leg raise - *Routine Skin Exam Present: intact - *Routine Neurological Exam Present: alert, oriented X3, CN II-XII intact, motor deficit, normal tone PT. unable to move BLE D/T pain - Routine Psychiatric Exam Present: normal affect, normal thought process Assessment and Plan - Assessment and plan all Dx Assessment and Plan for all problems:: Rounds with Dr. Rios, all orders per Dr. Rios Will consult Dr. Watts for further eval
--- NOTE | 2019-01-01 14:37 | Consult Report ---
*Admission Date: 12/31/18 *History of present illness: 53 yo wm with known dx of multiple myeloma on active treatment. he has been rec eiving RVD completing 2 cycles. he has had significant response by labs with marked decrease in k/l ratio. he is hospitalized now for increasing back pain. in the past he was ms contin 15 mg q 12 and percocet prn. H History Medical History: Reports:: Cancer (spinal) Denies:: Diabetes Mellitus Type 1, Diabetes Mellitus Type 2, Internal Pacemaker, Lung Disease, MRSA, Seizures *Have you ever received a pneumonia vaccine?: No *Have you received a flu vaccine this season?: Yes (Fall 2017) Other Medical History: Reports: Chemotherapy Laterality Cases: Left: Arthroscopy Hip, Total Hip Replacement Other Surgeries: No: Pacemaker Amputation: No Fractures: No - *Social History Educational Level: Completed High School Smoking Status: Never smoker Alcohol Intake: former Alcohol Intake Frequency:: holidays/special occasions only *Occupational Status:: unemployed, disabled Housing: assisted living facility Household Members: other *Travel in the last 8 weeks: None - Psychiatric History Expresses thoughts of harming self/others: None Suicide Plan Description: No Plan Family Hx:: Unable to obtain Review of Systems - *Neurologic Reports abnormal walking, Reports radiating pain, Reports weakness, Denies dizziness, Denies tingling/numbness/burning sensations Meds Home Medications Medication Instructions Recorded Confirmed Type Ibuprofen [Ibuprofen 600mg Tab] 600 mg PO Q6HP PRN #20 tab 09/02/18 01/01/19 Rx Naproxen Sodium [Naproxen ER 500mg 500 mg PO BID PRN #20 tab 09/23/18 01/01/19 Rx Tab] Ciprofloxacin HCl [Cipro 500mg 500 mg PO BID 7 Days #14 tab 12/25/18 01/01/19 Rx Tab] Acetaminophen [Acetaminophen 325mg 650 mg PO Q4HP PRN 01/01/19 01/01/19 History tab] Acyclovir [Zovirax] 400 mg PO BID 01/01/19 01/01/19 History Dexamethasone [Decadron] 4 mg PO DIRECTED 01/01/19 01/01/19 History Furosemide [Furosemide 20mg Tab] 10 mg PO DAILY 01/01/19 01/01/19 History Lactulose [Lactulose 10gm/15ml 10 gm PO DAILY 01/01/19 01/01/19 History Oral Soln] Lenalidomide [Revlimid] 25 mg PO DIRECTED 01/01/19 01/01/19 History Morphine Sulfate [Morphine Sulf IR 15 mg PO BID 01/01/19 01/01/19 History 15mg Tab] Oxycodone HCl/Acetaminophen 1 tab PO Q4-6H PRN 01/01/19 01/01/19 History [Percocet 10-325 mg Tablet] Prochlorperazine Maleate 10 mg PO Q4HP PRN 01/01/19 01/01/19 History [Compazine] risperiDONE [Risperidone] 1.5 mg PO BID 01/01/19 01/01/19 History Allergies Allergy/AdvReac Type Severity Reaction Status Date / Time No Known Allergies Allergy Verified 12/18/18 15:19 Exam Vital signs and Labs for Last 24 Hours: Temp Pulse Resp BP Pulse Ox 98.4 F 103 H 18 163/100 H 95 01/01/19 07:58 01/01/19 07:58 01/01/19 07:58 01/01/19 07:58 01/01/19 07:58 Laboratory Results - last 24 hr 12/31/18 20:25: WBC 6.0, RBC 2.83 L, Hgb 9.0 L, Hct 27.5 L, MCV 97.0 H, MCH 31.9 H, MCHC 32.9, RDW 14.9, Plt Count 455 H, MPV 8.1, Neut % (Auto) 71.5, Lymph % (Auto) 17.0, [place] % (Auto) 10.5 H, Eos % (Auto) 0.6, Baso % (Auto) 0.5, Neut # (Auto) 4.3, Lymph # (Auto) 1.0, [place] # (Auto) 0.6, Eos # (Auto) 0.0, Baso # (Auto) 0.0 12/31/18 20:25: ESR 84 H 12/31/18 20:25: Sodium 140, Potassium 4.2, Chloride 103, Carbon Dioxide 27, Anion Gap 14.2, BUN 21 H, Creatinine 1.86 H, Estimated Creat Clear 44, Estimated GFR 38 L, Est GFR ( Amer) 46 L, Glucose 103, Calcium 9.3, Total Bili mojica 0.3, Direct Bilirubin 0.1, Indirect Bilirubin 0.2, AST 11 L, ALT 18, Alkaline Phosphatase 107, Troponin I < 0.02, Total Protein 6.5, Albumin 2.9 L 12/31/18 20:25: Lipase 120 01/01/19 06:48: WBC 4.4 L D, RBC 2.48 L, Hgb 8.1 L, Hct 24.5 L, MCV 98.7 H, MCH 32.5 H, MCHC 33.0, RDW 15.1, Plt Count 420, MPV 7.8, Neut % (Auto) 68.6, Lymph % (Auto) 20.1, [place] % (Auto) 8.8, Eos % (Auto) 2.0, Baso % (Auto) 0.5, Neut # (Auto) 3.0, Lymph # (Auto) 0.9, [place] # (Auto) 0.4, Eos # (Auto) 0.1, Baso # (Auto) 0.0 01/01/19 06:48: Sodium 140, Potassium 4.2, Chloride 105, Carbon Dioxide 26, Anion Gap 13.2, BUN 20 H, Creatinine 1.91 H, Estimated Creat Clear 50, Estimated GFR 37 L, Est GFR ( Amer) 45 L, Glucose 96, Calcium 8.9 I & O for Last 24 hours: Intake & Output 12/30/18 12/31/18 01/01/19 01/02/19 11:59 11:59 11:59 11:59 Intake Total 510 / 510 Balance 510 / 510 Weight 173 lb 6 oz Internal Medicine - CN: Reslt - Labs CBC & Chem 7: 01/01/19 06:48 01/01/19 06:48 Labs: Short CBC 12/31/18 01/01/19 Range/Units 20:25 06:48 WBC 6.0 4.4 L D (4.8-10.8) K/mm3 Hgb 9.0 L 8.1 L (14.1-18.0) g/dL Hct 27.5 L 24.5 L (42.0-52.0) % Plt Count 455 H 420 (142-424) K/mm3 BMP 12/31/18 01/01/19 20:25 06:48 Sodium 140 140 Potassium 4.2 4.2 Chloride 103 105 Carbon Dioxide 27 26 BUN 21 H 20 H Creatinine 1.86 H 1.91 H Glucose 103 96 Calcium 9.3 8.9 Cardiac Enzymes 12/31/18 Range/Units 20:25 Troponin I < 0.02 (0.00-0.06) ng/ml Liver Function 12/31/18 Range/Units 20:25 Total Bilirubin 0.3 (0.2-1.0) mg/dL Direct Bilirubin 0.1 (0.0-0.2) mg/dL AST 11 L (15-37) U/L ALT 18 (12-78) U/L Alkaline Phosphatase 107 (46-116) U/L Albumin 2.9 L (3.4-5.0) gm/dL Assessment and Plan - Assessment and plan all Dx Assessment and Plan for all problems:: pt with multiple myeloma recieving RVD. he has had response by marked decrease in k/l light chain ratio. admitted now for exacerbation of pain. recommend to increase ms contin to 30 mg q 12 or consider consult to pain mgt. anemia is secondary to chemo and disease process. recommend tranfusion if hgb <7. Judith Watts MD
[2019-01-01 18:34] LABS: Microscopic, Urine URINE MICROSCOPIC (MICROSCOPIC)
[2019-01-01 18:50] LABS: Appearance,Urine CLEAR (Clear); Bilirubin,Urine Negative (Negative); Blood, Urine 2+ (Negative); Color,Urine YELLOW (Yellow); Glucose,Urine (UA) Negative (Negative); Ketones,Urine Negative (Negative); Leukocyte Esterase,Urine Negative (Negative); Protein,Urine 2+ (Negative); Specific Gravity, Urine 1.025 (1.005-1.030); Urobilinogen,Urine 0.2 EU/dl (0.2)
[2019-01-01 19:07] LABS: Bacteria,Urine Trace /lpf
[2019-01-02 07:32] LABS: Basophils % 0.6 % (0.1-2.0); Eosinophils # 0.2 K/mm3 (0.0-0.4); Eosinophils % 3.3 % (0.1-12.0); Hematocrit 24.5 % (42.0-52.0); Lymphocytes % 20.8 % (10-50); Mean Corpuscular HGB Conc 32.5 g/dL (31.8-35.4); Mean Corpuscular Hemoglobin 32.1 pg (27.0-31.2); Mean Corpuscular Volume 98.5 fl (80-94); Monocytes # 0.5 K/mm3 (0.1-1.0); Neutrophils # 3.1 K/mm3 (1.8-7.8); Neutrophils % 65.4 % (37.0-80.0); Platelet Count 385 K/mm3 (142-424); Red Blood Count 2.48 M/mm3 (4.60-6.20); Red Cell Distribution Width 14.9 % (11.5-17.5); White Blood Count 4.8 K/mm3 (4.8-10.8)
[2019-01-02 07:59] LABS: Calcium 8.6 mg/dL (8.5-10.1)
--- NOTE | 2019-01-02 08:23 | Progress Note ---
Internal Medicine - PN: Subj *Date: 01/02/19 *Time: 08:20 Exam Vital signs and Labs for Last 24 Hours: Temp Pulse Resp BP Pulse Ox 98.4 F 102 H 18 158/92 H 94 L 01/02/19 07:59 01/02/19 07:59 01/02/19 07:59 01/02/19 07:59 01/02/19 07:59 Laboratory Results - last 24 hr 12/31/18 18:30: Urine Color Yellow, Urine Appearance Clear, Urine pH 6.0, Ur Specific [place] 1.025, Urine Protein 2+, Urine Glucose (UA) Negative, Urine Ketones Negative, Urine Blood 2+, Urine Nitrate Negative, Urine Bilirubin Negative, Urine Urobilinogen 0.2, Ur Leukocyte Esterase Negative, Urine RBC None, Urine WBC 3-5, Ur Squamous Epith Cells None, Urine Bacteria Trace 01/02/19 07:00: WBC 4.8, RBC 2.48 L, Hgb 8.0 L, Hct 24.5 L, MCV 98.5 H, MCH 32.1 H, MCHC 32.5, RDW 14.9, Plt Count 385, MPV 8.0, Neut % (Auto) 65.4, Lymph % (Auto) 20.8, [place] % (Auto) 10.0 H, Eos % (Auto) 3.3, Baso % (Auto) 0.6, Neut # (Auto) 3.1, Lymph # (Auto) 1.0, [place] # (Auto) 0.5, Eos # (Auto) 0.2, Baso # (Auto) 0.0 01/02/19 07:00: Sodium 140, Potassium 4.0, Chloride 104, Carbon Dioxide 23, Anion Gap 17.0 H, BUN 21 H, Creatinine 1.89 H, Estimated Creat Clear 50, Estimated GFR 37 L, Est GFR ( Amer) 45 L, Glucose 92, Calcium 8.6 I & O for Last 24 hours: Intake & Output 12/30/18 12/31/18 01/01/19 01/02/19 11:59 11:59 11:59 11:59 Intake Total 510 / 510 600 / 600 Balance 510 / 510 600 / 600 Weight 173 lb 6 oz - Constitutional no acute distress - *Routine HEENT Exam Head: Present: normocephalic Eye: Present: EOMI, PERRL ENT: Present: mucous membranes moist - *Routine Neck Exam Present: supple. Absent: lymphadenopathy - *Routine Respiratory Exam Present: CTA bilaterally - *Routine Cardiovascular Exam Present: RRR - *Routine Abdominal Exam Present: soft, normoactive bowel sounds. Absent: tenderness - *Routine Extremities Exam Absent: cyanosis, clubbing, edema - Routine Back/Spine/Pelvis Exam Back/Spine: Present: paraspinal tenderness, vertebral tenderness, pain with flexion, pain with lateral flexion, pain with rotation, abnormal straight leg raise - *Routine Skin Exam Present: warm, wounds. Absent: rash Comments: stage 2 on rt coccyx - *Routine Neurological Exam Present: alert, oriented X3 - Routine Psychiatric Exam Present: normal affect Assessment and Plan (1) Anemia Current visit: Yes Status: Acute Qualifiers: Anemia type: unspecified type Qualified Code(s): D64.9 - Anemia, unspecified Category: Medical Code(s): D64.9 - Anemia, unspecified (2) Cancer Current visit: Yes Status: Acute Category: Medical Code(s): C80.1 - Malignant (primary) neoplasm, unspecified (3) Compression fracture of L2 lumbar vertebra Current visit: Yes Status: Acute Qualifiers: Encounter type: initial encounter Fracture type: closed Qualified Code(s): S32.020A - Wedge compression fracture of second lumbar vertebra, initial encounter for closed fracture Category: Medical Code(s): S32.020A - Wedge compression fracture of second lumbar vertebra, initial encounter for closed fracture (4) Compression fracture of fifth lumbar vertebra Current visit: Yes Status: Acute Qualifiers: Encounter type: initial encounter Fracture type: closed Qualified Code(s): S32.050A - Wedge compression fracture of fifth lumbar vertebra, initial encounter for closed fracture Category: Medical Code(s): S32.050A - Wedge compression fracture of fifth lumbar vertebra, initial encounter for closed fracture (5) Compression fracture of first lumbar vertebra Current visit: Yes Status: Acute Qualifiers: Encounter type: initial encounter Fracture type: closed Qualified Code(s): S32.010A - Wedge compression fracture of first lumbar vertebra, initial encounter for closed fracture Category: Medical Code(s): S32.010A - Wedge compression fracture of first lumbar vertebra, initial encounter for closed fracture (6) Compression fracture of fourth lumbar vertebra Current visit: Yes Status: Acute Qualifiers: Encounter type: initial encounter Fracture type: closed Qualified Code(s): S32.040A - Wedge compression fracture of fourth lumbar vertebra, initial encounter for closed fracture Category: Medical Code(s): S32.040A - Wedge compression fracture of fourth lumbar vertebra, initial encounter for closed fracture (7) Fracture of transverse process of spine without spinal cord lesion Current visit: Yes Status: Acute Category: Medical (8) Myeloma Current visit: Yes Status: Acute Qualifiers: Multiple myeloma remission status: not in remission Qualified Code(s): C90.00 - Multiple myeloma not having achieved remission Category: Medical Code(s): C90.00 - Multiple myeloma not having achieved remission (9) Osteopenia Current visit: Yes Status: Acute Qualifiers: Osteopenia location: multiple sites Qualified Code(s): M85.89 - Other spec ified disorders of bone density and structure, multiple sites Category: Medical Code(s): M85.80 - Other specified disorders of bone density and structure, unspecified site (10) Compression fracture of L3 lumbar vertebra Current visit: Yes Status: Chronic Qualifiers: Encounter type: subsequent encounter Fracture type: closed Fracture healing: with delayed healing Qualified Code(s): S32.030G - Wedge compression fracture of third lumbar vertebra, subsequent encounter for fracture with delayed healing Category: Medical Code(s): S32.030A - Wedge compression fracture of third lumbar vertebra, initial encounter for closed fracture (11) Low back pain Current visit: Yes Status: Chronic Qualifiers: Chronicity: chronic Back pain laterality: unspecified Sciatica presence: without sciatica Qualified Code(s): M54.5 - Low back pain; G89.29 - Other chronic pain Category: Medical Code(s): M54.5 - Low back pain (12) Back pain Current visit: No Status: Acute Qualifiers: Back pain location: low back pain Chronicity: acute Back pain laterality: left Sciatica presence: without sciatica Qualified Code(s): M54.5 - Low back pain Category: Medical Code(s): M54.9 - Dorsalgia, unspecified (13) Lytic bone lesion of hip Current visit: No Status: Acute Category: Medical Code(s): M89.8X5 - Other specified disorders of bone, thigh (14) Pathologic fracture Current visit: No Status: Acute Category: Medical Code(s): M84.40XA - Pathological fracture, unspecified site, initial encounter for fracture (15) Thoracolumbar back pain Current visit: No Status: Acute Category: Medical Code(s): M54.5 - Low back pain; M54.6 - Pain in thoracic spine - Assessment and plan all Dx Assessment and Plan for all problems:: Rounded with Dr. Rios all orders per Gabriel pt ot lovenox to prevent dvt oob to chair
[2019-01-03 06:33] LABS: Basophils % 0.6 % (0.1-2.0); Eosinophils # 0.2 K/mm3 (0.0-0.4); Eosinophils % 3.8 % (0.1-12.0); Lymphocytes # 0.7 K/mm3 (0.7-4.5); Lymphocytes % 16.5 % (10-50); Mean Corpuscular HGB Conc 33.3 g/dL (31.8-35.4); Mean Corpuscular Hemoglobin 32.7 pg (27.0-31.2); Mean Corpuscular Volume 98.1 fl (80-94); Mean Platelet Volume 7.8 fl (7.4-10.4); Monocytes # 0.4 K/mm3 (0.1-1.0); Neutrophils # 2.8 K/mm3 (1.8-7.8); Neutrophils % 69.2 % (37.0-80.0); Platelet Count 359 K/mm3 (142-424); Red Blood Count 2.38 M/mm3 (4.60-6.20); White Blood Count 4.1 K/mm3 (4.8-10.8)
[2019-01-03 07:08] LABS: Hemoglobin 7.8 g/dL (14.1-18.0)
[2019-01-03 07:09] LABS: Hematocrit 23.3 % (42.0-52.0)
[2019-01-03 07:17] LABS: Anion Gap 13.9 mEq/L (5-15); Calcium 8.5 mg/dL (8.5-10.1); Potassium 3.9 mmoL/L (3.5-5.1)
--- NOTE | 2019-01-03 09:19 | Progress Note ---
Internal Medicine - PN: Subj *Date: 01/03/19 *Time: 09:16 Exam Vital signs and Labs for Last 24 Hours: Temp Pulse Resp BP Pulse Ox 98.7 F 109 H 16 155/90 H 96 01/03/19 08:00 01/03/19 08:00 01/03/19 08:00 01/03/19 08:00 01/03/19 08:00 Laboratory Results - last 24 hr 01/03/19 05:45: WBC 4.1 L, RBC 2.38 L, Hgb 7.8 L*, Hct 23.3 L*, MCV 98.1 H, MCH 32.7 H, MCHC 33.3, RDW 15.0, Plt Count 359, MPV 7.8, Neut % (Auto) 69.2, Lymph % (Auto) 16.5, [place] % (Auto) 10.0 H, Eos % (Auto) 3.8, Baso % (Auto) 0.6, Neut # (Auto) 2.8, Lymph # (Auto) 0.7, [place] # (Auto) 0.4, Eos # (Auto) 0.2, Baso # (Auto) 0.0 01/03/19 05:45: Sodium 140, Potassium 3.9, Chloride 105, Carbon Dioxide 25, Anion Gap 13.9, BUN 17, Creatinine 1.64 H, Estimated Creat Clear 58, Estimated GFR 44 L, Est GFR ( Amer) 53 L, Glucose 94, Calcium 8.5 I & O for Last 24 hours: Intake & Output 12/31/18 01/01/19 01/02/19 01/03/19 11:59 11:59 11:59 11:59 Intake Total 510 / 510 600 / 600 1641 / 1641 Balance 510 / 510 600 / 600 1641 / 1641 Weight 173 lb 6 oz 173 lb 6.015 oz - Constitutional no acute distress - *Routine HEENT Exam Head: Present: normocephalic Eye: Present: EOMI, PERRL ENT: Present: mucous membranes moist - *Routine Neck Exam Present: supple. Absent: lymphadenopathy - *Routine Respiratory Exam Present: CTA bilaterally - *Routine Cardiovascular Exam Present: RRR - *Routine Abdominal Exam Present: soft, normoactive bowel sounds. Absent: tenderness - *Routine Extremities Exam Absent: cyanosis, clubbing, edema - *Routine Skin Exam Present: warm. Absent: rash - *Routine Neurological Exam Present: alert, oriented X3 - Routine Psychiatric Exam Present: normal affect Assessment and Plan (1) Anemia Current visit: Yes Status: Acute Qualifiers: Anemia type: unspecified type Qualified Code(s): D64.9 - Anemia, unspecified Category: Medical Code(s): D64.9 - Anemia, unspecified (2) Cancer Current visit: Yes Status: Acute Category: Medical Code(s): C80.1 - Malignant (primary) neoplasm, unspecified (3) Compression fracture of L2 lumbar vertebra Current visit: Yes Status: Acute Qualifiers: Encounter type: initial encounter Fracture type: closed Qualified Code(s): S32.020A - Wedge compression fracture of second lumbar vertebra, initial encounter for closed fracture Category: Medical Code(s): S32.020A - Wedge compression fracture of second lumbar vertebra, initial encounter for closed fracture (4) Compression fracture of fifth lumbar vertebra Current visit: Yes Status: Acute Qualifiers: Encounter type: initial encounter Fracture type: closed Qualified Code(s): S32.050A - Wedge compression fracture of fifth lumbar vertebra, initial encounter for closed fracture Category: Medical Code(s): S32.050A - Wedge compression fracture of fifth lumbar vertebra, initial encounter for closed fracture (5) Compression fracture of first lumbar vertebra Current visit: Yes Status: Acute Qualifiers: Encounter type: initial encounter Fracture type: closed Qualified Code(s): S32.010A - Wedge compression fracture of first lumbar vertebra, initial encounter for closed fracture Category: Medical Code(s): S32.010A - Wedge compression fracture of first lumbar vertebra, initial encounter for closed fracture (6) Compression fracture of fourth lumbar vertebra Current visit: Yes Status: Acute Qualifiers: Encounter type: initial encounter Fracture type: closed Qualified Code(s): S32.040A - Wedge compression fracture of fourth lumbar vertebra, initial encounter for closed fracture Category: Medical Code(s): S32.040A - Wedge compression fracture of fourth lumbar vertebra, initial encounter for closed fracture (7) Fracture of transverse process of spine without spinal cord lesion Current visit: Yes Status: Acute Category: Medical (8) Myeloma Current visit: Yes Status: Acute Qualifiers: Multiple myeloma remission status: not in remission Qualified Code(s): C90.00 - Multiple myeloma not having achieved remission Category: Medical Code(s): C90.00 - Multiple myeloma not having achieved remission (9) Osteopenia Current visit: Yes Status: Acute Qualifiers: Osteopenia location: multiple sites Qualified Code(s): M85.89 - Other specified disorders of bone density and structure, multiple sites Category: Medical Code(s): M85.80 - Other specified disorders of bone density and structure, unspecified site (10) Compression fracture of L3 lumbar vertebra Current visit: Yes Status: Chronic Qualifiers: Encounter type: subsequent encounter Fracture type: closed Fracture healing: with delayed healing Qualified Code(s): S32.030G - Wedge compression fracture of third lumbar vertebra, subsequent encounter for fracture with delayed healing Category: Medical Code(s): S32.030A - Wedge compression fracture of third lumbar vertebra, initial encounter for closed fracture (11) Low back pain Current visit: Yes Status: Chronic Qualifiers: Chronicity: chronic Back pain laterality: unspecified Sciatica presence: without sciatica Qualified Code(s): M54.5 - Low back pain; G89.29 - Other chronic pain Category: Medical Code(s): M54.5 - Low back pain (12) Back pain Current visit: No Status: Acute Qualifiers: Back pain location: low back pain Chronicity: acute Back pain laterality: left Sciatica presence: without sciatica Qualified Code(s): M54.5 - Low back pain Category: Medical Code(s): M54.9 - Dorsalgia, unspecified (13) Lytic bone lesion of hip Current visit: No Status: Acute Category: Medical Code(s): M89.8X5 - Other specified disorders of bone, thigh (14) Pathologic fracture Current visit: No Status: Acute Category: Medical Code(s): M84.40XA - Pathological fracture, unspecified site, initial encounter for fracture (15) Thoracolumbar back pain Current visit: No Status: Acute Category: Medical Code(s): M54.5 - Low back pain; M54.6 - Pain in thoracic spine - Assessment and plan all Dx Assessment and Plan for all problems:: gatito to round later today discussed with gatito. all orders per gatito
[2019-01-04 06:43] LABS: Basophils % 0.5 % (0.1-2.0); Eosinophils # 0.2 K/mm3 (0.0-0.4); Eosinophils % 4.3 % (0.1-12.0); Lymphocytes # 0.8 K/mm3 (0.7-4.5); Mean Corpuscular HGB Conc 33.4 g/dL (31.8-35.4); Mean Corpuscular Hemoglobin 32.3 pg (27.0-31.2); Mean Corpuscular Volume 96.5 fl (80-94); Mean Platelet Volume 7.9 fl (7.4-10.4); Monocytes # 0.4 K/mm3 (0.1-1.0); Neutrophils # 2.7 K/mm3 (1.8-7.8); Neutrophils % 66.1 % (37.0-80.0); Platelet Count 367 K/mm3 (142-424); Red Blood Count 2.44 M/mm3 (4.60-6.20); Red Cell Distribution Width 15.1 % (11.5-17.5); White Blood Count 4.1 K/mm3 (4.8-10.8)
[2019-01-04 06:52] LABS: Hematocrit 23.6 % (42.0-52.0); Hemoglobin 7.9 g/dL (14.1-18.0)
[2019-01-04 06:54] LABS: Anion Gap 13.6 mEq/L (5-15); Calcium 8.6 mg/dL (8.5-10.1); Potassium 3.6 mmoL/L (3.5-5.1)
--- NOTE | 2019-01-04 14:57 | Progress Note ---
Internal Medicine - PN: Subj *Date: 01/04/19 *Time: 13:00 Interval history: no def new issues h/h stable Exam Vital signs and Labs for Last 24 Hours: Temp Pulse Resp BP Pulse Ox 98.2 F 44 L 16 141/91 H 97 01/04/19 08:00 01/04/19 08:00 01/04/19 08:00 01/04/19 08:00 01/04/19 08:00 Laboratory Results - last 24 hr 01/04/19 06:15: WBC 4.1 L, RBC 2.44 L, Hgb 7.9 L*, Hct 23.6 L*, MCV 96.5 H, MCH 32.3 H, MCHC 33.4, RDW 15.1, Plt Count 367, MPV 7.9, Neut % (Auto) 66.1, Lymph % (Auto) 20.0, [place] % (Auto) 9.0, Eos % (Auto) 4.3, Baso % (Auto) 0.5, Neut # (Auto) 2.7, Lymph # (Auto) 0.8, [place] # (Auto) 0.4, Eos # (Auto) 0.2, Baso # (Auto) 0.0 01/04/19 06:15: Sodium 140, Potassium 3.6, Chloride 106, Carbon Dioxide 24, Anion Gap 13.6, BUN 13, Creatinine 1.55 H, Estimated Creat Clear 61, Estimated GFR 47 L, Est GFR ( Amer) 57 L, Glucose 94, Calcium 8.6 I & O for Last 24 hours: Intake & Output 01/02/19 01/03/19 01/04/19 01/05/19 10:59 10:59 11:59 11:59 Intake Total 240 / 240 Balance 240 / 240 Weight - Constitutional no acute distress - *Routine HEENT Exam Head: Present: normocephalic Eye: Present: EOMI, PERRL ENT: Present: mucous membranes dry - *Routine Neck Exam Absent: JVD - *Routine Respiratory Exam Present: decreased breath sounds - *Routine Cardiovascular Exam Present: RRR - *Routine Abdominal Exam Present: soft - *Routine Extremities Exam Absent: calf tenderness - *Routine Skin Exam Present: intact - *Routine Neurological Exam Present: alert. Absent: motor deficit - Routine Psychiatric Exam Present: unable to assess Assessment and Plan (1) Anemia Current visit: Yes Status: Acute Qualifiers: Anemia type: unspecified type Qualified Code(s): D64.9 - Anemia, unspecified Category: Medical Code(s): D64.9 - Anemia, unspecified (2) Cancer Current visit: Yes Status: Acute Category: Medical Code(s): C80.1 - Malignant (primary) neoplasm, unspecified (3) Compression fracture of L2 lumbar vertebra Current visit: Yes Status: Acute Qualifiers: Encounter type: initial encounter Fracture type: closed Qualified Code(s): S32.020A - Wedge compression fracture of second lumbar vertebra, ini tial encounter for closed fracture Category: Medical Code(s): S32.020A - Wedge compression fracture of second lumbar vertebra, initial encounter for closed fracture (4) Compression fracture of fifth lumbar vertebra Current visit: Yes Status: Acute Qualifiers: Encounter type: initial encounter Fracture type: closed Qualified Code(s): S32.050A - Wedge compression fracture of fifth lumbar vertebra, initial encounter for closed fracture Category: Medical Code(s): S32.050A - Wedge compression fracture of fifth lumbar vertebra, initial encounter for closed fracture (5) Compression fracture of first lumbar vertebra Current visit: Yes Status: Acute Qualifiers: Encounter type: initial encounter Fracture type: closed Qualified Code(s): S32.010A - Wedge compression fracture of first lumbar vertebra, initial encounter for closed fracture Category: Medical Code(s): S32.010A - Wedge compression fracture of first lumbar vertebra, initial encounter for closed fracture (6) Compression fracture of fourth lumbar vertebra Current visit: Yes Status: Acute Qualifiers: Encounter type: initial encounter Fracture type: closed Qualified Code(s): S32.040A - Wedge compression fracture of fourth lumbar vertebra, initial encounter for closed fracture Category: Medical Code(s): S32.040A - Wedge compression fracture of fourth lumbar vertebra, initial encounter for closed fracture (7) Fracture of transverse process of spine without spinal cord lesion Current visit: Yes Status: Acute Category: Medical (8) Myeloma Current visit: Yes Status: Acute Qualifiers: Multiple myeloma remission status: not in remission Qualified Code(s): C90.00 - Multiple myeloma not having achieved remission Category: Medical Code(s): C90.00 - Multiple myeloma not having achieved remission (9) Osteopenia Current visit: Yes Status: Acute Qualifiers: Osteopenia location: multiple sites Qualified Code(s): M85.89 - Other specified disorders of bone density and structure, multiple sites Category: Medical Code(s): M85.80 - Other specified disorders of bone density and structure, unspecified site (10) Compression fracture of L3 lumbar vertebra Current visit: Yes Status: Chronic Qualifiers: Encounter type: subsequent encounter Fracture type: closed Fracture healing: with delayed healing Qualified Code(s): S32.030G - Wedge compression fracture of third lumbar vertebra, subsequent encounter for fracture with delayed healing Category: Medical Code(s): S32.030A - Wedge compression fracture of third lumbar vertebra, initial encounter for closed fracture (11) Low back pain Current visit: Yes Status: Chronic Qualifiers: Chronicity: chronic Back pain laterality: unspecified Sciatica presence: without sciatica Qualified Code(s): M54.5 - Low back pain; G89.29 - Other chronic pain Category: Medical Code(s): M54.5 - Low back pain (12) Back pain Current visit: No Status: Acute Qualifiers: Back pain location: low back pain Chronicity: acute Back pain laterality: left Sciatica presence: without sciatica Qualified Code(s): M54.5 - Low back pain Category: Medical Code(s): M54.9 - Dorsalgia, unspecified (13) Lytic bone lesion of hip Current visit: No Status: Acute Category: Medical Code(s): M89.8X5 - Other specified disorders of bone, thigh (14) Pathologic fracture Current visit: No Status: Acute Category: Medical Code(s): M84.40XA - Pathological fracture, unspecified site, initial encounter for fracture (15) Thoracolumbar back pain Current visit: No Status: Acute Category: Medical Code(s): M54.5 - Low back pain; M54.6 - Pain in thoracic spine
[2019-01-05 07:11] LABS: Basophils % 0.7 % (0.1-2.0); Eosinophils # 0.2 K/mm3 (0.0-0.4); Eosinophils % 6.1 % (0.1-12.0); Hematocrit 24.5 % (42.0-52.0); Hemoglobin 8.2 g/dL (14.1-18.0); Lymphocytes % 25.8 % (10-50); Mean Corpuscular HGB Conc 33.2 g/dL (31.8-35.4); Mean Corpuscular Hemoglobin 32.2 pg (27.0-31.2); Mean Corpuscular Volume 96.8 fl (80-94); Mean Platelet Volume 7.8 fl (7.4-10.4); Monocytes # 0.3 K/mm3 (0.1-1.0); Monocytes % 7.2 % (1.7-9.3); Neutrophils # 2.4 K/mm3 (1.8-7.8); Neutrophils % 60.1 % (37.0-80.0); Platelet Count 360 K/mm3 (142-424); Red Blood Count 2.54 M/mm3 (4.60-6.20); Red Cell Distribution Width 15.2 % (11.5-17.5); White Blood Count 3.9 K/mm3 (4.8-10.8)
[2019-01-05 07:29] LABS: Anion Gap 13.9 mEq/L (5-15); Calcium 8.6 mg/dL (8.5-10.1); Potassium 3.9 mmoL/L (3.5-5.1)
--- NOTE | 2019-01-05 09:05 | Progress Note ---
Internal Medicine - PN: Subj *Date: 01/05/19 *Time: 09:02 Interval history: pt more alert today Exam Vital signs and Labs for Last 24 Hours: Temp Pulse Resp BP Pulse Ox 98.9 F 94 H 20 165/99 H 94 L 01/05/19 08:00 01/05/19 08:00 01/05/19 08:00 01/05/19 08:00 01/05/19 08:00 Laboratory Results - last 24 hr 01/05/19 06:50: WBC 3.9 L, RBC 2.54 L, Hgb 8.2 L, Hct 24.5 L, MCV 96.8 H, MCH 32.2 H, MCHC 33.2, RDW 15.2, Plt Count 360, MPV 7.8, Neut % (Auto) 60.1, Lymph % (Auto) 25.8, Nance % (Auto) 7.2, Eos % (Auto) 6.1, Baso % (Auto) 0.7, Neut # (Auto) 2.4, Lymph # (Auto) 1.0, Nance # (Auto) 0.3, Eos # (Auto) 0.2, Baso # (Auto) 0.0 01/05/19 06:50: Sodium 140, Potassium 3.9, Chloride 105, Carbon Dioxide 25, Anion Gap 13.9, BUN 11, Creatinine 1.53 H, Estimated Creat Clear 62, Estimated GFR 48 L, Est GFR ( Amer) 58 L, Glucose 91, Calcium 8.6 I & O for Last 24 hours: Intake & Output 01/02/19 01/03/19 01/04/19 01/05/19 10:59 10:59 11:59 11:59 Intake Total 600 / 600 Output Total 700 / 700 Balance -100 / -100 Weight - Constitutional no acute distress - *Routine HEENT Exam Head: Present: normocephalic Eye: Present: EOMI, PERRL ENT: Present: mucous membranes dry - *Routine Neck Exam Present: supple - *Routine Respiratory Exam Present: decreased breath sounds - *Routine Cardiovascular Exam Present: RRR, murmur - *Routine Abdominal Exam Present: soft - *Routine Extremities Exam Absent: calf tenderness - *Routine Skin Exam Present: intact - *Routine Neurological Exam Present: alert, CN II-XII intact - Routine Psychiatric Exam Present: normal affect Assessment and Plan (1) Anemia Current visit: Yes Status: Acute Qualifiers: Anemia type: unspecified type Qualified Code(s): D64.9 - Anemia, unspecified Category: Medical Code(s): D64.9 - Anemia, unspecified (2) Cancer Current visit: Yes Status: Acute Category: Medical Code(s): C80.1 - Malignant (primary) neoplasm, unspecified (3) Compression fracture of L2 lumbar vertebra Current visit: Yes Status: Acute Qualifiers: Encounter type: initial encounter Fracture type: closed Qualified Code(s): S32.020A - Wedge compression fracture of second lumbar vertebra, initial encounter for closed fracture Category: Medical Code(s): S32.020A - Wedge compression fracture of second lumbar vertebra, initial encounter for closed fracture (4) Compression fracture of fifth lumbar vertebra Current visit: Yes Status: Acute Qualifiers: Encounter type: initial encounter Fracture type: closed Qualified Code(s): S32.050A - Wedge compression fracture of fifth lumbar vertebra, initial encounter for closed fracture Category: Medical Code(s): S32.050A - Wedge compression fracture of fifth l umbar vertebra, initial encounter for closed fracture (5) Compression fracture of first lumbar vertebra Current visit: Yes Status: Acute Qualifiers: Encounter type: initial encounter Fracture type: closed Qualified Code(s): S32.010A - Wedge compression fracture of first lumbar vertebra, initial encounter for closed fracture Category: Medical Code(s): S32.010A - Wedge compression fracture of first lumbar vertebra, initial encounter for closed fracture (6) Compression fracture of fourth lumbar vertebra Current visit: Yes Status: Acute Qualifiers: Encounter type: initial encounter Fracture type: closed Qualified Code(s): S32.040A - Wedge compression fracture of fourth lumbar vertebra, initial encounter for closed fracture Category: Medical Code(s): S32.040A - Wedge compression fracture of fourth lumbar vertebra, initial encounter for closed fracture (7) Fracture of transverse process of spine without spinal cord lesion Current visit: Yes Status: Acute Category: Medical (8) Myeloma Current visit: Yes Status: Acute Qualifiers: Multiple myeloma remission status: not in remission Qualified Code(s): C90.00 - Multiple myeloma not having achieved remission Category: Medical Code(s): C90.00 - Multiple myeloma not having achieved remission (9) Osteopenia Current visit: Yes Status: Acute Qualifiers: Osteopenia location: multiple sites Qualified Code(s): M85.89 - Other specified disorders of bone density and structure, multiple sites Category: Medical Code(s): M85.80 - Other specified disorders of bone density and structure, unspecified site (10) Compression fracture of L3 lumbar vertebra Current visit: Yes Status: Chronic Qualifiers: Encounter type: subsequent encounter Fracture type: closed Fracture healing: with delayed healing Qualified Code(s): S32.030G - Wedge compression fracture of third lumbar vertebra, subsequent encounter for fracture with delayed healing Category: Medical Code(s): S32.030A - Wedge compression fracture of third lumbar vertebra, initial encounter for closed fracture (11) Low back pain Current visit: Yes Status: Chronic Qualifiers: Chronicity: chronic Back pain laterality: unspecified Sciatica presence: without sciatica Qualified Code(s): M54.5 - Low back pain; G89.29 - Other chronic pain Category: Medical Code(s): M54.5 - Low back pain (12) Back pain Current visit: No Status: Acute Qualifiers: Back pain location: low back pain Chronicity: acute Back pain laterality: left Sciatica presence: without sciatica Qualified Code(s): M54.5 - Low back pain Category: Medical Code(s): M54.9 - Dorsalgia, unspecified (13) Lytic bone lesion of hip Current visit: No Status: Acute Category: Medical Code(s): M89.8X5 - Other specified disorders of bone, thigh (14) Pathologic fracture Current visit: No Status: Acute Category: Medical Code(s): M84.40XA - Pathological fracture, unspecified site, initial encounter for fracture (15) Thoracolumbar back pain Current visit: No Status: Acute Category: Medical Code(s): M54.5 - Low back pain; M54.6 - Pain in thoracic spine
--- NOTE | 2019-01-06 08:40 | Discharge Summary ---
General - General Admission date:: 01/01/19 Discharge date: 01/06/19 HPI HPI: Brought in by ambulance from [facility] home. He states that the physical therapist called an ambulance to have him brought over because he told the therapist he could not get up and walk because of his lower back pain. He states that his back pain is chronic, worse for several days. He has myeloma and is getting chemotherapy. His oncologist is Dr. Watts. He is on MS Contin and Percocet 10 mg for pain. Hospital Course Hospital Course: ct c spine:IMPRESSION: 1. DISH of the cervical spine. 2. Diffuse osteopenia with no definite focal lytic lesion 3. No acute fracture apparent ct t spine:IMPRESSION: 1. Diffuse osteopenia with focal lucencies of the thoracic spine consistent with multiple myeloma. 2. No acute fracture with no significant change t spine:IMPRESSION: 1. Extensive diffuse osteopenia which is increased since the previous exam consistent with progression of myeloma. 2. Multiple compression fractures of the lumbar spine which have developed since the interval with increased compression of L3 with kyphoplasty changes at L3. Right L1 and L2 transverse process fractures are also present. No obvious retropulsed fragments. ct abd/pelvis: IMPRESSION: 1. Right lower lobe pneumonia with hyperdensity in the right lung base which may be due to embolized cement. 2. Cholelithiasis. 3. Colonic diverticulosis. 4. Multiple bony lytic lesions consistent with patient's diagnosis of multiple myeloma with nondisplaced fracture involving the left iliac crest superiorly and posteriorly per chuy note:pt with multiple myeloma recieving RVD. he has had response by marked decrease in k/l light chain ratio. admitted now for exacerbation of pain. recommend to increase ms contin to 30 mg q 12 or consider consult to pain mgt. anemia is secondary to chemo and disease process. recommend tranfusion if hgb <7. Judith Watts MD will dc to [facility] today for PT,OT and pain control. consult pain management. Objective Vital signs: Temp Pulse Resp BP Pulse Ox 98.6 F 84 18 141/86 H 96 01/06/19 04:00 01/06/19 04:00 01/06/19 04:00 01/06/19 04:00 01/06/19 04:00 no acute distress - *Routine HEENT Exam Head: Present: normocephalic Eye: Present: PERRL ENT: Present: mucous membranes moist - *Routine Respiratory Exam Present: CTA bilaterally - *Routine Cardiovascular Exam Present: RRR - *Routine Abdominal Exam Present: soft, normoactive bowel sounds - *Routine Extremities Exam Present: full ROM, pulses intact - Routine Back/Spine/Pelvis Exam Back/Spine: Present: paraspinal tenderness, vertebral tenderness, pain with lateral flexion, pain with rotation, abnormal straight leg raise - *Routine Skin Exam Comments: stage 2 on buttocks - *Routine Neurological Exam Present: alert, oriented X3 - Routine Psychiatric Exam Present: normal affect Results - Additional Comments Rounded with Dr. Rios all orders per Gabriel DS: Diagnosis - Discharge Diagnosis (1) Anemia Status: Acute (2) Cancer Status: Acute (3) Compression fracture of L2 lumbar vertebra Status: Acute (4) Compression fracture of fifth lumbar vertebra Status: Acute (5) Compression fracture of first lumbar vertebra Status: Acute (6) Compression fracture of fourth lumbar vertebra Status: Acute (7) Fracture of transverse process of spine without spinal cord lesion Status: Acute (8) Myeloma Status: Acute (9) Osteopenia Status: Acute (10) Compression fracture of L3 lumbar vertebra Status: Chronic (11) Low back pain Status: Chronic (12) Back pain Status: Acute (13) Lytic bone lesion of hip Status: Acute (14) Pathologic fracture Status: Acute (15) Thoracolumbar back pain Status: Acute Discharge Plan - Patient Discharge Instructions ACTIVITY: Continue current activity DIET: continue same diet Patient Instructions: Multiple Myeloma, DI for Low Back Pain - Follow up Plan Follow up with: Davis Rios MD [Primary Care Provider] - Disposition: Home, Self-[facility] Medications: Home Medications Medication Instructions Recorded Confirmed Type Ibuprofen [Ibuprofen 600mg Tab] 600 mg PO Q6HP PRN #20 tab 09/02/18 01/01/19 Rx Naproxen Sodium [Naproxen ER 500mg 500 mg PO BID PRN #20 tab 09/23/18 01/01/19 Rx Tab] Acetaminophen [Acetaminophen 325mg 650 mg PO Q4HP PRN 01/01/19 01/01/19 History tab] Acyclovir [Zovirax] 400 mg PO BID 01/01/19 01/01/19 History Dexamethasone [Decadron] 4 mg PO DIRECTED 01/01/19 01/01/19 History Furosemide [Furosemide 20mg Tab] 10 mg PO DAILY 01/01/19 01/01/19 History Lactulose [Lactulose 10gm/15ml 10 gm PO DAILY 01/01/19 01/01/19 History Oral Soln] Lenalidomide [Revlimid] 25 mg PO DIRECTED 01/01/19 01/01/19 History Morphine Sulfate [Morphine Sulf IR 15 mg PO BID 01/01/19 01/01/19 History 15mg Tab] Oxycodone HCl/Acetaminophen 1 tab PO Q4-6H PRN 01/01/19 01/01/19 History [Percocet 10-325 mg Tablet] Prochlorperazine Maleate 10 mg PO Q4HP PRN 01/01/19 01/01/19 History [Compazine] risperiDONE [Risperidone] 1.5 mg PO BID 01/01/19 01/01/19 History Morphine Sulfate [MS Contin 30mg 30 mg PO Q12 30 Days #60 tablet.er 01/06/19 Rx EXTENDED RELEASE tablet] Prescriptions/Medication Reconciliation: New Morphine Sulfate [MS Contin 30mg EXTENDED RELEASE tablet] 30 mg PO Q12 30 Days #60 tablet.er Continue Ibuprofen [Ibuprofen 600mg Tab] 600 mg PO Q6HP PRN #20 tab PRN Reason: Mild To Moderate Pain Naproxen Sodium [Naproxen ER 500mg Tab] 500 mg PO BID PRN #20 tab PRN Reason: Chest Pain Prochlorperazine Maleate [Compazine] 10 mg PO Q4HP PRN PRN Reason: Nausea Lenalidomide [Revlimid] 25 mg PO DIRECTED Dexamethasone [Decadron] 4 mg PO DIRECTED Acyclovir [Zovirax] 400 mg PO BID Acetaminophen [Acetaminophen 325mg tab] 650 mg PO Q4HP PRN PRN Reason: As Needed For Fever Or Pain risperiDONE [Risperidone] 1.5 mg PO BID Lactulose [Lactulose 10gm/15ml Oral Soln] 10 gm PO DAILY Furosemide [Furosemide 20mg Tab] 10 mg PO DAILY Discontinued Morphine Sulfate [Morphine Sulf IR 15mg Tab] 15 mg PO BID Oxycodone HCl/Acetaminophen [Percocet 10-325 mg Tablet] 1 tab PO Q4-6H PRN PRN Reason: pain
[2019-01-06 08:45] VITALS: BP 181/95
== END 2019-01-06 12:45 | disposition home or self-care (01) | DRG 948 ==
LOC: ER 17:44 → 2ND 17:44 → OBSVTOIN 01-01 00:37 → 2ND 01-01 00:38
PROVIDERS: ADMIT Emergency Medicine; ATTEND Emergency Medicine
CPT/HCPCS: J2405

== ENCOUNTER → 2019-01-13 13:21 | Outpatient (POV) | payer MEDICARE, OTHER, SELFPAY ==
--- NOTE | 2019-01-13 16:24 | HMH.PAINSOAP ---
[facility] Pain Management SOAP Note Subjective:: Patient is a pleasant 53-year-old white male who presents today for follow-up. Patient had a L3 kyphoplasty after a compression fracture due to malignancy. Patient since then had now has a compression fracture of L1-L2 L4 and L5. Patient is in extreme pain however he states he is in no pain today. Patient does have a legal guardian. He is correction states he is unable to get comfortable and is in quite a lot of pain with any movement. ROS General: no recent weight change, no fever, no sleep disturbances Respiratory: no cough, no shortness of air, no recurring pulmonary infections Cardiovascular/Peripheral Vascular: No chest pain, No palpitations, no edema, no shortness of breath. Gastrointestinal: no new onset incontinence, normal bowel movements reported Genitourinary: no new onset ncontinence Musculoskeletal: Back pain, leg pain Psychiatric: Slightly anxious Neurological: Bilateral lower leg weakness, unable to ambulate Objective:: Physical Exam General: Alert and oriented x3, no acute distress, pleasant and cooperative, [on room air] Lungs: Resps E/U, Symmetrical chest expansion Eyes: PERRL Musculoskeletal: Unable to ambulate and assess flexion and extension, deep tendon reflexes normal, neurological: speech clear, pattern mechanic equal, no gross sensory deficits Assessment:: Malignancy, multilevel compression fractures Plan:: I believe the best plan of care would be an implant of a permanent pain pump for palliative care. I will discussed this with his oncologist and then his state guardian and move forward with that if we are all in agreement. Dr. Hernandez has reviewed this note and agrees with this plan of care. This note was dictated using voice recognition software and may contain errors or omissions
--- NOTE | 2019-01-13 16:27 | P.CONS_ITS ---
[facility] Pain Management SOAP Note Subjective:: Patient is a pleasant 53-year-old white male who presents today for follow-up. Patient had a L3 kyphoplasty after a compression fracture due to malignancy. Patient since then had now has a compression fracture of L1-L2 L4 and L5. Patient is in extreme pain however he states he is in no pain today. Patient does have a legal guardian. He is skilled nursing states he is unable to get comfortable and is in quite a lot of pain with any movement. ROS General: no recent weight change, no fever, no sleep disturbances Respiratory: no cough, no shortness of air, no recurring pulmonary infections Cardiovascular/Peripheral Vascular: No chest pain, No palpitations, no edema, no shortness of breath. Gastrointestinal: no new onset incontinence, normal bowel movements reported Genitourinary: no new onset ncontinence Musculoskeletal: Back pain, leg pain Psychiatric: Slightly anxious Neurological: Bilateral lower leg weakness, unable to ambulate Objective:: Physical Exam General: Alert and oriented x3, no acute distress, pleasant and cooperative, [on room air] Lungs: Resps E/U, Symmetrical chest expansion Eyes: PERRL Musculoskeletal: Unable to ambulate and assess flexion and extension, deep tendon reflexes normal, neurological: speech clear, game farm helper equal, no gross sensory deficits Assessment:: Malignancy, multilevel compression fractures Plan:: I believe the best plan of care would be an implant of a permanent pain pump for palliative care. I will discussed this with his oncologist and then his state guardian and move forward with that if we are all in agreement. Dr. Hernandez has reviewed this note and agrees with this plan of care. This note was dictated using voice recognition software and may contain errors or omissions
== END ==
PROVIDERS: PCP Emergency Medicine; Visit Provider Clinical Nurse Specialist Family Health
DX: C90.00 Multiple myeloma not having achieved remission (principal); S32.010A Wedge compression fracture of first lumbar vertebra, initial encounter for closed fracture; S32.050A Wedge compression fracture of fifth lumbar vertebra, initial encounter for closed fracture; S32.040A Wedge compression fracture of fourth lumbar vertebra, initial encounter for closed fracture; S32.020A Wedge compression fracture of second lumbar vertebra, initial encounter for closed fracture
CPT/HCPCS: 99213

== ENCOUNTER → 2019-01-26 12:46 | Outpatient (POV) | payer MEDICARE, OTHER, SELFPAY ==
--- NOTE | 2019-01-26 12:55 | P.CONS_ITS ---
[facility] Pain Management SOAP Note Subjective:: Patient is a pleasant 53-year-old white male who presents today for follow-up. Patient has multiple compression fractures secondary to malignancy. Patient is currently awaiting chemo however there needed getting the pain under control prior. Patient is a detention he rates his pain a 4 out of 10 when he is still and not moving. His regional clinical research associate states that he is in quite a lot of pain and unable to do any activities. Patient's not any anticoagulation therapy. Patient's oncologist Dr. Watts and I had a conversation in regards to implantation of an intrathecal pain pump. She agrees that this would be a good way in order to help control his pain. ROS General: no recent weight change, no fever, no sleep disturbances Respiratory: no cough, no shortness of air, no recurring pulmonary infections Cardiovascular/Peripheral Vascular: No chest pain, No palpitations, no edema, no shortness of breath. Musculoskeletal: Back pain Psychiatric: Flat affect Neurological: Unable to bear weight Objective:: Physical Exam General: Alert and oriented x3, no acute distress, pleasant and cooperative, [on room air] Lungs: Resps E/U, Symmetrical chest expansion, Eyes: PERRL Musculoskeletal: Flexion and extension of right lumbar spine somewhat guarded secondary to pain, deep tendon reflexes normal, strength in upper and lower extremities [2/5], unable to ambulate Neurological: speech clear, midwife and birth center owner equal, no gross sensory deficits Assessment:: Compression fracture secondary to malignancy Plan:: I a have talked to Dr. Watts and I will contact the patient's guardian we will move forward with her interthecal pain pump implant I believe it would be the best for the patient in regards to long-term pain control with his chemotherapy. Dr. Hernandez has reviewed this note and agrees with this plan of care. This note was dictated using voice recognition software and may contain errors or omissions
[2019-01-26 12:58] VITALS: BP 135/78; PULSE 79; RESP 18; O2SAT 98; BMI 27.5
== END ==
PROVIDERS: PCP Emergency Medicine; Visit Provider Clinical Nurse Specialist Family Health
DX: C90.00 Multiple myeloma not having achieved remission (principal)
CPT/HCPCS: 99212

== ENCOUNTER → 2019-02-10 11:28 | Outpatient (POV) | payer MEDICARE, OTHER, SELFPAY ==
[2019-02-10 12:01] VITALS: BP 132/85; PULSE 87; RESP 18; O2SAT 98; BMI 32.3
--- NOTE | 2019-02-10 12:59 | P.PCN_ITS ---
- Procedure Date: 02/10/19 Time: 12:55 Anesthesiologist:: Jami Majano APRN Complications:: None Pre-procedure Diagnosis:: Multiple myeloma, multiple compression fractures lumbar spine Post-procedure Diagnosis:: Same Indications for Procedure:: Patient is a pleasant 53-year-old white male who presents today for follow-up after intrathecal pain pump implant. Patient is at 0.5 mg of morphine a day. Patient is a little more active he rates his pain a 7 out of 10. Patient has no sign symptoms of infection. Overall looks well. We will increase him today. Physical Exam General: Alert and oriented x3, no acute distress, pleasant and cooperative, [on room air] Lungs: Resps E/U, Symmetrical chest expansion, Eyes: PERRL Musculoskeletal: Flexion and extension of lumbar spine somewhat guarded secondary to pain, deep tendon reflexes normal, strength in upper and lower extremities [4/5], unable to ambulate at this time Neurological: speech clear, nuclear reactor operator equal, no gross sensory deficits Procedure Details:: Informed consent was obtained and the risk and benefits of the procedure were explained to the patient. The patient was taken to the procedure room where noninvasive monitoring was placed including noninvasive blood pressure cuff and pulse oximeter. Patient's pump was interrogated and reprogrammed. The infusion rate was increased to 1 mg of morphine per day. The patient tolerated the procedure well. Plan and Disposition:: We will follow-up with the patient 2 weeks and remove his sutures at that time. He has been instructed to call the office. Patient's caretakers have been instructed to monitor for increased drowsiness. Dr. Hernandez has reviewed this note and agrees with this plan of care. This note was dictated using voice recognition software and may contain errors or omissions
== END ==
PROVIDERS: PCP Emergency Medicine; Visit Provider Clinical Nurse Specialist Family Health
DX: C90.00 Multiple myeloma not having achieved remission (principal); S32.010A Wedge compression fracture of first lumbar vertebra, initial encounter for closed fracture; S32.050A Wedge compression fracture of fifth lumbar vertebra, initial encounter for closed fracture; S32.040A Wedge compression fracture of fourth lumbar vertebra, initial encounter for closed fracture; S32.020A Wedge compression fracture of second lumbar vertebra, initial encounter for closed fracture
CPT/HCPCS: 62368

== ENCOUNTER → 2019-04-17 13:37 | Outpatient (POV) | payer MEDICARE, OTHER, SELFPAY ==
[2019-04-17 14:00] VITALS: BP 92/60; PULSE 72; RESP 17; O2SAT 91; BMI 26.6
--- NOTE | 2019-04-17 14:42 | HMH.PAINSOAP ---
[facility] Pain Management SOAP Note Subjective:: This patient is a pleasant 53-year-old white male who has a history of multiple myeloma and is currently under hospice care. He does have an intrathecal pain pump. He is doing well with his pump. He currently has an intrathecal morphine pain pump going at 1 mg/day. He is alert and oriented x3 in no acute distress. He recently was released from . He is doing much better since he is discharged. Objective:: Alert and oriented x3 in no acute distress. He is seen lying in bed. His pump was interrogated Saturday he has a concentration of 5 mg/mL of intrathecal morphine going at 1 mg/day. Assessment:: Multiple myeloma with intrathecal pain pump in place. Plan:: We will continue his pump at 1 mg/day of intrathecal morphine.. We will follow-up with him at his next refill. Has any problems or questions he is to call us in the pain clinic.
--- NOTE | 2019-04-17 14:48 | P.CONS_ITS ---
[facility] Pain Management SOAP Note Subjective:: This patient is a pleasant 53-year-old white male who has a history of multiple myeloma and is currently under hospice care. He does have an intrathecal pain pump. He is doing well with his pump. He currently has an intrathecal morphine pain pump going at 1 mg/day. He is alert and oriented x3 in no acute distress. He recently was released from . He is doing much better since he is discharged. Objective:: Alert and oriented x3 in no acute distress. He is seen lying in bed. His pump was interrogated Saturday he has a concentration of 5 mg/mL of intrathecal morphine going at 1 mg/day. Assessment:: Multiple myeloma with intrathecal pain pump in place. Plan:: We will continue his pump at 1 mg/day of intrathecal morphine.. We will follow- up with him at his next refill. Has any problems or questions he is to call us in the pain clinic.
== END ==
PROVIDERS: PCP Emergency Medicine; Visit Provider Anesthesiology
DX: C90.00 Multiple myeloma not having achieved remission (principal); Z96.89 Presence of other specified functional implants
CPT/HCPCS: 99212

== ENCOUNTER → 2019-05-09 15:15 | Outpatient (CLI) | payer OTHER, MEDICARE, SELFPAY ==
[2019-05-09 17:23] LABS: Potassium 5.2 mmoL/L (3.5-5.1)
== END ==
LOC: LAB 15:19 → LAB.DROPOF 05-10 11:37
PROVIDERS: PCP Emergency Medicine; Visit Provider Emergency Medicine
DX: E87.5 Hyperkalemia (principal)
CPT/HCPCS: 84132

== ENCOUNTER 2019-08-03 10:53 | Inpatient (IN) ==
[2019-08-03 11:27] LABS: Basophils # 0.1 K/mm3 (0-0.2); Basophils % 0.7 % (0.1-2.0); Eosinophils % 0.4 % (0.1-12.0); Hematocrit 34.3 % (42.0-52.0); Hemoglobin 10.2 g/dL (14.1-18.0); Lymphocytes % 24.9 % (10-50); Mean Corpuscular HGB Conc 29.7 g/dL (31.8-35.4); Mean Corpuscular Volume 108.3 fl (80-94); Mean Platelet Volume 8.5 fl (7.4-10.4); Monocytes # 0.5 K/mm3 (0.1-1.0); Monocytes % 6.7 % (1.7-9.3); Neutrophils # 5.3 K/mm3 (1.8-7.8); Neutrophils % 67.4 % (37.0-80.0); Platelet Count 476 K/mm3 (142-424); Red Blood Count 3.16 M/mm3 (4.60-6.20); Red Cell Distribution Width 17.4 % (11.5-17.5); White Blood Count 7.9 K/mm3 (4.8-10.8)
--- NOTE | 2019-08-03 11:32 | Emergency Department Note ---
ED Disposition Clinical Impression: Bilateral pneumonia, Tachycardia Disposition: Admitted as Observation Condition on Discharge: Good Referrals: Davis Rios MD [Primary Care Provider] - Time of Disposition: 13:01 - Critical Care Critical Care Time: No Attestation: On 08/03/19, the high probability of a clinically significant, sudden or life threatening deterioration of the following system(s) required my full and direct attention, intervention and personal management. The time I documented below is in addition to time spent performing reported procedures but includes the following listed in this critical care notation. Medical Decision Making - Medical Records Medical records reviewed: Yes: I reviewed the patient's medical records. - Jere Inquiry Pt receiving controlled substance: No Jere was queried for this patient: No Vital Signs: 08/03/19 11:04 08/03/19 11:19 08/03/19 11:30 Temperature 99.3 F Temperature Source Oral Pulse Rate [Left Radial] 154 H 157 H 155 H Respiratory Rate 24 Blood Pressure [Right Arm] 125/91 H 129/73 125/88 Blood Pressure Mean [Right Arm] 102 91 100 Blood Pressure Source [Right Arm] Automatic Cuff Automatic Cuff Blood Pressure Position [Right Arm] Sitting Sitting Sitting 02 Sat by Pulse Oximetry 96 95 95 Oxygen Delivery Method Room Air Room Air Room Air 08/03/19 11:44 08/03/19 12:00 Temperature Temperature Source Pulse Rate [Left Radial] 154 H 148 H Respiratory Rate Blood Pressure [Right Arm] 123/86 109/90 L Blood Pressure Mean [Right Arm] 98 96 Blood Pressure Source [Right Arm] Blood Pressure Position [Right Arm] Sitting Sitting 02 Sat by Pulse Oximetry Oxygen Delivery Method - Lab Data Lab results reviewed: Yes: I reviewed the patient's lab results. Lab Results 08/03/19 11:00: WBC 7.9, RBC 3.16 L, Hgb 10.2 L, Hct 34.3 L, MCV 108.3 H, MCH 32.2 H, MCHC 29.7 L, RDW 17.4, Plt Count 476 H, MPV 8.5, Neut % (Auto) 67.4, Lymph % (Auto) 24.9, [place] % (Auto) 6.7, Eos % (Auto) 0.4, Baso % (Auto) 0.7, Neut # (Auto) 5.3, Lymph # (Auto) 2.0, [place] # (Auto) 0.5, Eos # (Auto) 0.0, Baso # (Auto) 0.1 08/03/19 11:00: Sodium 141, Potassium 4.7, Chloride 103, Carbon Dioxide 27, Anion Gap 15.7 H, BUN 31 H, Creatinine 1.54 H, Estimated Creat Clear 67, Estimated GFR 47 L, Est GFR ( Amer) 57 L, Glucose 95, Calcium 8.7, Total Bilirubin 0.1 L, AST 16, ALT 25, Alkaline Phosphatase 76, Troponin I < 0.02, Total Protein 6.1 L, Albumin 3.0 L, Globulin 3.1, Albumin/Globulin Ratio 1.0 L 08/03/19 12:04: Lactate 1.9 Result diagrams: 08/03/19 11:00 08/03/19 11:00 Orders (Tests/Meds): ED MEDICATIONS Generic Name Dose Route Start Last Admin Trade Name Freq PRN Reason Stop Dose Admin Diltiazem HCl 100 mg/ Sodium 100 mls @ 10 mls/hr 08/03/19 12:45 Chloride IV 09/02/19 12:44 .Q10H LEA Protocol 10 MG/HR Diltiazem HCl 100 mg/ Sodium 100 mls @ 5 mls/hr 08/03/19 12:57 Chloride IV 09/02/19 12:56 .Q20H LEA Levofloxacin/Dextrose 750 mg in 150 mls @ 100 mls/hr 08/03/19 12:45 Levofloxacin 750mg/150ml Premix IV 08/17/19 12:44 Q24H LEA Protocol Cefepime HCl 2 gm/ Sodium 100 mls @ 200 mls/hr 08/03/19 12:45 Chloride IV 08/17/19 12:44 Q8H LEA Protocol Discontinued Medications Generic Name Dose Route Start Last Admin Trade Name Freq PRN Reason Stop Dose Admin Diltiazem HCl 10 mg 08/03/19 12:42 Cardizem 25mg/5ml Vial IV 08/03/19 12:43 ONCE ONE Sodium Chloride 1,000 mls @ 999 mls/hr 08/03/19 12:00 08/03/19 11:49 Sod Chlor 0.9% 1000ml Bag IV 08/03/19 13:00 999 mls/hr .Q1H1M LEA Administration Metoprolol Tartrate 5 mg 08/03/19 11:29 08/03/19 11:45 Metoprolol Tartrate 5mg/5ml Vial IV 08/03/19 11:30 5 mg ONCE ONE Administration Metoprolol Tartrate 5 mg 08/03/19 12:09 08/03/19 12:04 Metoprolol Tartrate 5mg/5ml Vial IV 08/03/19 12:10 5 mg ONCE ONE Administration ORDERS Category Date Time Status Consult to Cardiology [CONS] Routine Cons 08/03/19 11:53 Active Blood Culture Stat Micro 08/03/19 12:04 Received - Physician Consults Physician Consulted: Nehemiah nino Time: 10:15 Additional Consult: gatito Moraes Adult HPI - General Chief complaint: Weakness Stated complaint: weakness Time Seen by Provider: 08/03/19 11:29 Mode of Arrival: EMS Source of Information: Patient, EMS Limitations: Physical Limitations Description of Symptoms (Recalled from ER Triage Doc. by RN): to ed per squad pt sent from [place] for eval due to rapid heart rate of 150s pt denies any other c/o at present. pt with redness noted to abd, swelling to feet and ankles. pt recently dx with pneumonia and chf currently taking augmentin and torsemide. - History of Present Illness HPI narrative: tachycardia, no chest pain - Related Data Home Medications Medication Instructions Recorded Confirmed Acetaminophen [Acetaminophen 325mg 650 mg PO Q4HP PRN 01/01/19 07/28/19 tab] Acyclovir [Zovirax] 400 mg PO DAILY 01/01/19 07/28/19 Dexamethasone [Decadron] 4 mg PO DIRECTED 01/01/19 07/28/19 Lactulose [Lactulose 10gm/15ml 10 gm PO DAILY 01/01/19 07/28/19 Oral Soln] Lenalidomide [Revlimid] 25 mg PO DIRECTED 01/01/19 07/28/19 Prochlorperazine Maleate 10 mg PO Q4HP PRN 01/01/19 07/28/19 [Compazine] risperiDONE [Risperidone] 1.5 mg PO BID 01/01/19 07/28/19 Morphine Sulfate 1 mg IT DAILY 05/05/19 07/28/19 Ondansetron HCl [Ondansetron 4mg 4 mg PO ACHS 05/05/19 07/28/19 Tablet] Pantoprazole Sodium [Protonix 40mg 40 mg PO BID 05/05/19 07/28/19 tablet] dilTIAZem HCl [Diltiazem ER] 120 mg PO DAILY 05/05/19 07/28/19 Previous Rx's Medication Instructions Recorded Naproxen Sodium [Naproxen ER 500mg 500 mg PO BID PRN #20 tab 09/23/18 Tab] Allergies Allergy/AdvReac Type Severity Reaction Status Date / Time No Known Allergies Allergy Verified 07/28/19 13:45 [facility] History - Hepatitis A Screen Drug use history?: No High risk sexual behaviors?: No History of sexually transmitted infection?: No Currently employed?: No Childcare worker?: No Do you have indoor plumbing?: Yes Do you have electricity?: Yes Attestation statement:: This patient has been screened for Hepatitis A risk factors. I have reviewed the patient's past medical history: Yes Medical History: Denies:: Cancer, Diabetes Mellitus Type 1, Diabetes Mellitus Type 2, Internal Pacemaker, Lung Disease, MRSA, Seizures Other Medical History: Reports: Chemotherapy Comment: Illnesses-metastatic multiple myeloma, anemia, renal insufficiency, osteopenia, history of compression fracture status post kyphoplasty, diverticular disease, schizophrenia Laterality Cases: Left: Arthroscopy Hip, Total Hip Replacement Other Surgeries: Yes: Cholecystectomy, Other (painpump implant). No: Pacemaker Amputation: No Fractures: No Comment: Operations, left hip surgery, kyphoplasty - Social History Smoking Status: Never smoker Alcohol Intake: never Alcohol Intake Frequency:: holidays/special occasions only Occupational Status: disabled Housing: [facility] Household Members: other Family Hx:: Unable to obtain ROS Obtained: Yes unobtainable due to mental condition - Constitutional Constitutional: Denies fever(s) - ENT Ears, Nose, Mouth, and Throat: Denies sinus pain, Denies sinus pressure, Denies sore throat - Cardiovascular Cardiovascular: Denies system reviewed and no additional complaints, except as docu, Denies chest pain, Denies diaphoresis, Denies dyspnea - Respiratory Respiratory: No dyspnea, No coughing up blood - Gastrointestinal Gastrointestingal: Denies: abdominal pain - Musculoskeletal Musculoskeletal: Denies joint stiffness, Denies joint swelling, Denies muscle cramps - Integumentary/Breasts Skin/Breast: Denies rash, Denies skin pain - Neurologic Neurologic: Denies headache(s) - Hematologic/Lymphatic Henatologic/Lymphatic: Denies easy bleeding Physical Exam - General General appearance: alert, in no apparent distress - Head Head exam: atraumatic, normocephalic, normal inspection - Eye Eye exam: Present: normal appearance, PERRL, EOMI - ENT ENT exam: Present: normal exam, normal oropharynx, mucous membranes moist, TM's normal bilaterally, normal external ear exam - Neck Neck exam: Present: normal inspection, full ROM, trachea midline. Absent: meningismus, lymphadenopathy - Respiratory Respiratory exam: Present: normal lung sounds bilaterally, other (coarse breath sounds). Absent: respiratory distress - Cardiovascular Cardiovascular exam: Present: normal rhythm, tachycardia - Abdominal Exam Abdominal exam: Present: soft. Absent: distention, tenderness, guarding - Extremities Exam Extremities exam: Present: pedal edema - Neurological Exam Neurological exam: Present: alert, oriented X3 - Psychiatric Psychiatric exam: Present: normal affect, normal mood
[2019-08-03 11:57] LABS: Alanine Aminotransferase 25 U/L (12-78); Alkaline Phosphatase 76 U/L (46-116); Anion Gap 15.7 mEq/L (5-15); Bilirubin,Total 0.1 mg/dL (0.2-1.0); Blood Urea Nitrogen 31 mg/dL (7-18); Calcium 8.7 mg/dL (8.5-10.1); Carbon Dioxide 27 mmol/L (21.0-32.0); Chloride 103 mmol/L (98-107); Globulin 3.1 gm/dl (1.3-3.2); Glucose 95 mg/dL (74-106); Sodium 141 mmol/L (136-145); Total Protein,Serum 6.1 gm/dL (6.4-8.2)
[2019-08-03 11:59] LABS: Aspartate Amino Transferase 16 U/L (15-37)
--- NOTE | 2019-08-03 12:44 | Consult Report ---
History of Present Illness Consult date: 08/03/19 Requesting physician: Davis Rios Consult reason: atrial fibrillation Chief complaint: Tachycardia, A. fib/flutter Additional Medical History:: 1. ?History of [facility] 3. ?HTN 4. CKD, stage 2 currently 5. Chronic anemia 6. Multiple myeloma with multiple compression fractures A. Intrathecal pain pump, followed by Dr. Hernandez History of present illness: 54 [facility] sent [facility] ER for evaluation of tachycardia, cough and edema. Poor historian but does endorse some chest discomfort and neck fullness. EKG shows tachycardia at 154 bpm which appears to be a. flutter. Unresponsive to IV lopressor 5 mg X 2. Pt with congestive cough and reportedly recently treated for pneumonia. Initial troponin normal. CXR shows bilateral pneumonia without CHF. History of multiple myeloma and Hospice care. [facility] History Medical History: Denies:: Cancer, Diabetes Mellitus Type 1, Diabetes Mellitus Type 2, Internal Pacemaker, Lung Disease, MRSA, Seizures *Have you ever received a pneumonia vaccine?: Yes *Have you received a flu vaccine this season?: Yes Other Medical History: Reports: Chemotherapy Laterality Cases: Left: Arthroscopy Hip, Total Hip Replacement Other Surgeries: Yes: Cholecystectomy, Other (painpump implant). No: Pacemaker Amputation: No Fractures: No - *Social History Smoking Status: Never smoker Alcohol Intake: never Alcohol Intake Frequency:: holidays/special occasions only *Occupational Status:: disabled Housing: custodial Household Members: other *Travel in the last 8 weeks: None Family Hx:: Unable to obtain Meds Home Medications Medication Instructions Recorded Confirmed Type Naproxen Sodium [Naproxen ER 500mg 500 mg PO BID PRN #20 tab 09/23/18 08/03/19 Rx Tab] Acetaminophen [Acetaminophen 325mg 650 mg PO Q4HP PRN 01/01/19 08/03/19 History tab] Acyclovir [Zovirax] 400 mg PO DAILY 01/01/19 08/03/19 History Dexamethasone [Decadron] 4 mg PO DIRECTED 01/01/19 08/03/19 History Lactulose [Lactulose 10gm/15ml 10 gm PO DAILY 01/01/19 08/03/19 History Oral Soln] Lenalidomide [Revlimid] 25 mg PO DIRECTED 01/01/19 08/03/19 History Prochlorperazine Maleate 10 mg PO Q4HP PRN 01/01/19 08/03/19 History [Compazine] risperiDONE [Risperidone] 1.5 mg PO BID 01/01/19 08/03/19 History Morphine Sulfate 1 mg IT DAILY 05/05/19 08/03/19 History Ondansetron HCl [Ondansetron 4mg 4 mg PO ACHS 05/05/19 08/03/19 History Tablet] Pantoprazole Sodium [Protonix 40mg 40 mg PO BID 05/05/19 08/03/19 History tablet] dilTIAZem HCl [Diltiazem ER] 120 mg PO DAILY 05/05/19 08/03/19 History Allergies Allergy/AdvReac Type Severity Reaction Status Date / Time No Known Allergies Allergy Verified 07/28/19 13:45 Review of Systems - *Cardiovascular Reports chest pain, Reports shortness of breath, Reports shortness of breath with activity - *Respiratory Reports chest congestion, Reports cough, Reports shortness of breath - *Gastrointestinal Denies abdominal pain, Denies nausea, Denies vomiting - *Genitourinary Denies blood in urine - *Musculoskeletal Denies joint pain, Denies back pain - *Neurologic Denies headache(s) Exam Vital signs and Labs for Last 24 Hours: Temp Pulse Resp BP Pulse Ox 99.3 F 148 H 24 109/90 L 95 08/03/19 11:04 08/03/19 12:00 08/03/19 11:04 08/03/19 12:00 08/03/19 11:30 Laboratory Results - last 24 hr 08/03/19 11:00: WBC 7.9, RBC 3.16 L, Hgb 10.2 L, Hct 34.3 L, MCV 108.3 H, MCH 32.2 H, MCHC 29.7 L, RDW 17.4, Plt Count 476 H, MPV 8.5, Neut % (Auto) 67.4, Lymph % (Auto) 24.9, [place] % (Auto) 6.7, Eos % (Auto) 0.4, Baso % (Auto) 0.7, Neut # (Auto) 5.3, Lymph # (Auto) 2.0, [place] # (Auto) 0.5, Eos # (Auto) 0.0, Baso # (Auto) 0.1 08/03/19 11:00: Sodium 141, Potassium 4.7, Chloride 103, Carbon Dioxide 27, Anion Gap 15.7 H, BUN 31 H, Creatinine 1.54 H, Estimated Creat Clear 67, Estimated GFR 47 L, Est GFR ( Amer) 57 L, Glucose 95, Calcium 8.7, Total Bilirubin 0.1 L, AST 16, ALT 25, Alkaline Phosphatase 76, Troponin I < 0.02, Total Protein 6.1 L, Albumin 3.0 L, Globulin 3.1, Albumin/Globulin Ratio 1.0 L I & O for Last 24 hours: Intake & Output 08/01/19 08/02/19 08/03/19 08/04/19 11:59 11:59 11:59 11:59 Weight 190 lb - *Routine Neck Exam Present: supple. Absent: JVD, carotid bruit - *Routine Respiratory Exam Present: decreased breath sounds, rhonchi. Absent: accessory muscle use, rales, wheezes - *Routine Cardiovascular Exam Present: tachycardia. Absent: murmur, gallop, rubs - *Routine Abdominal Exam Present: soft. Absent: tenderness, distended, guarding - *Routine Extremities Exam Present: edema. Absent: calf tenderness - *Routine Neurological Exam Present: alert, moving all extremities Assessment and Plan (1) Tachycardia Current visit: Yes Status: Acute Category: Medical Code(s): R00.0 - Tachycardia, unspecified (2) Atrial flutter with rapid ventricular response Current visit: Yes Status: Acute Category: Medical Code(s): I48.92 - Unspecified atrial flutter (3) Bilateral pneumonia Current visit: Yes Status: Acute Category: Medical Code(s): J18.9 - Pneumonia, unspecified organism (4) Multiple myeloma Current visit: Yes Status: Acute Category: Medical Code(s): C90.00 - Multiple myeloma not having achieved remission (5) Renal insufficiency Current visit: No Status: Acute Category: Medical Code(s): N28.9 - Disorder of kidney and ureter, unspecified - Assessment and plan all Dx Assessment and Plan for all problems:: 1. Stop IV lopressor 2. Start IV dilitiazem with bolus of 10 mg and gtt of 10 mg per hour 3. Wait to obtain echo once heart rate has dropped below 100 bpm for better assessment of LVEF 4. Continue serial enzymes 5. CHADS-VASC score of 1 based on limited history. Only needs ASA for now. 6. further recommendations pending above results
--- NOTE | 2019-08-03 14:54 | Pharmacy Consult Notes ---
[facility] Pharmacy VTE Monitoring - Patient Demographics Admission date: 08/03/19 Report Date: 08/03/19 Time: 14:54 Allergies/Adverse Reactions: Patient Allergies No Known Allergies Allergy (Verified 07/28/19 13:45) Height: 1.63 m Weight: 76.232 kg Patient Problems: Current Active Problems Tachycardia (Acute) Atrial flutter with rapid ventricular response (Acute) Bilateral pneumonia (Acute) Multiple myeloma (Acute) Bilateral pneumonia (Acute) Tachycardia (Acute) - VTE Risk Labs: VTE Related Lab Results Hgb 10.2 g/dL (14.1-18.0) L 08/03/19 11:00 Hct 34.3 % (42.0-52.0) L 08/03/19 11:00 Plt Count 476 K/mm3 (142-424) H 08/03/19 11:00 BUN 31 mg/dL (7-18) H 08/03/19 11:00 Creatinine 1.54 mg/dL (0.70-1.30) H 08/03/19 11:00 Estimated Creat Clear 67 mL/min (50-200) 08/03/19 11:00 - Prophylaxis VTE Prophylaxis Ordered?: Yes Types of VTE Prophylaxis: TEDS Knee High Location of Applied Device: Bilateral Lower Extremeties - VTE Diagnosis Confirmed Treatment or plan recommended: Continue Current Treatment
--- NOTE | 2019-08-03 15:21 | History & Physical Report ---
*Admission Date: 08/03/19 *Chief complaint: weakness *History of present illness: this wm sent from [facility] with overall weakness and tachycardia - pt was seen in the ed - to ed per squad pt sent from [place] for eval due to rapid heart rate of 150s pt denies any other c/o at present. pt with redness noted to abd, swelling to feet and ankles. pt recently dx with pneumonia and chf currently taking augmentin and torsemide.pt was seen by card -?History of schizophrenia 2. [place] resident 3. ?HTN 4. CKD, stage 2 currently 5. Chronic anemia 6. Multiple myeloma with multiple compression fractures A. Intrathecal pain pump, followed by Dr morrow 54 yo WM [place] resident sent to ER for evaluation of tachycardia, cough and edema. Poor historian but does endorse some chest discomfort and neck fullness. EKG shows tachycardia at 154 bpm which appears to be a. flutter. Unresponsive to IV lopressor 5 mg X 2. Pt with congestive cough and reportedly recently treated for pneumonia. Initial troponin normal. CXR shows bilateral pneumonia without CHF. History of multiple myeloma and Hospice care. [facility] History I have reviewed the patient's past medical history: Yes Medical History: Denies:: Cancer, Diabetes Mellitus Type 1, Diabetes Mellitus Type 2, Internal Pacemaker, Lung Disease, MRSA, Seizures *Have you ever received a pneumonia vaccine?: Yes *Have you received a flu vaccine this season?: Yes Other Medical History: Reports: Chemotherapy Laterality Cases: Left: Arthroscopy Hip, Total Hip Replacement Other Surgeries: Yes: Cholecystectomy, Other (painpump implant). No: Pacemaker Amputation: No Fractures: No - *Social History Smoking Status: Never smoker Alcohol Intake: never Alcohol Intake Frequency:: holidays/special occasions only *Occupational Status:: disabled Housing: jail Household Members: other *Travel in the last 8 weeks: None Family Hx:: Unable to obtain Review of Systems - Review of Systems Review of systems:: pertinent systems reviewed and negative unless documented below - Constitutional Reports weakness, Denies fever(s) - Eyes Denies change in vision - ENT Denies sore throat - *Cardiovascular Reports shortness of breath, Reports fast heart rate, Denies chest pain at rest - *Respiratory Denies cough - *Gastrointestinal Denies abdominal pain - *Musculoskeletal Denies joint pain - Integumentary/Breasts Denies rash - *Neurologic Denies localized weakness, Denies headache(s), Denies seizure-like activity Meds Home Medications Medication Instructions Recorded Confirmed Type Acetaminophen [Acetaminophen 325mg 650 mg PO Q4HP PRN 01/01/19 08/03/19 History tab] Acyclovir [Zovirax] 400 mg PO DAILY 01/01/19 08/03/19 History Dexamethasone [Decadron] 2 mg PO DAILY 01/01/19 08/03/19 History Lactulose [Lactulose 10gm/15ml 10 gm PO DAILY 01/01/19 08/03/19 History Oral Soln] Ondansetron HCl [Ondansetron 4mg 4 mg PO ACHS 05/05/19 08/03/19 History Tablet] Pantoprazole Sodium [Protonix 40mg 40 mg PO BID 05/05/19 08/03/19 History tablet] dilTIAZem HCl [Diltiazem ER] 120 mg PO DAILY 05/05/19 08/03/19 History Allopurinol [Allopurinol 300mg 300 mg PO DAILY 08/03/19 08/03/19 History tablet] Gabapentin [Gabapentin 300mg Cap] 300 mg PO BID 08/03/19 08/03/19 History Guaifenesin/Dextromethorphan 15 ml PO Q4HP PRN 08/03/19 08/03/19 History [Robafen Dm Cough Syrup] Hyoscyamine Sulfate 0.125 mg PO BIDP PRN 08/03/19 08/03/19 History Ipratropium/Albuterol Sulfate 3 ml IH Q6HP PRN 08/03/19 08/03/19 History [Iprat-Albut 0.5-3(2.5) mg/3 ml] Loperamide HCl [Loperamide] 2 - 4 mg PO Q6HP PRN 08/03/19 08/03/19 History Loratadine [Claritin] 10 mg PO DAILY 08/03/19 08/03/19 History Torsemide [Demadex 20mg tablet] 20 mg PO TUFR 08/03/19 08/03/19 History diphenhydrAMINE HCl 25 mg PO Q6HP PRN 08/03/19 08/03/19 History [Diphenhydramine HCl] risperiDONE [Risperdal 1mg Tablet] 1 mg PO HS 08/03/19 08/03/19 History risperiDONE [Risperidone] 0.5 mg PO DAILY 08/03/19 08/03/19 History Allergies Allergy/AdvReac Type Severity Reaction Status Date / Time No Known Allergies Allergy Verified 07/28/19 13:45 Exam Vital signs and Labs for Last 24 Hours: Temp Pulse Resp BP Pulse Ox 98 F 117 H 22 105/69 L 98 08/03/19 14:29 08/03/19 14:52 08/03/19 14:29 08/03/19 14:29 08/03/19 14:25 Laboratory Results - last 24 hr 08/03/19 11:00: WBC 7.9, RBC 3.16 L, Hgb 10.2 L, Hct 34.3 L, MCV 108.3 H, MCH 32.2 H, MCHC 29.7 L, RDW 17.4, Plt Count 476 H, MPV 8.5, Neut % (Auto) 67.4, Lymph % (Auto) 24.9, [place] % (Auto) 6.7, Eos % (Auto) 0.4, Baso % (Auto) 0.7, Neut # (Auto) 5.3, Lymph # (Auto) 2.0, [place] # (Auto) 0.5, Eos # (Auto) 0.0, Baso # (Auto) 0.1 08/03/19 11:00: Sodium 141, Potassium 4.7, Chloride 103, Carbon Dioxide 27, Anion Gap 15.7 H, BUN 31 H, Creatinine 1.54 H, Estimated Creat Clear 67, Estimated GFR 47 L, Est GFR ( Amer) 57 L, Glucose 95, Calcium 8.7, Total Bilirubin 0.1 L, AST 16, ALT 25, Alkaline Phosphatase 76, Troponin I < 0.02, Total Protein 6.1 L, Albumin 3.0 L, Globulin 3.1, Albumin/Globulin Ratio 1.0 L 08/03/19 12:04: Lactate 1.9 I & O for Last 24 hours: Intake & Output 08/01/19 08/02/19 08/03/19 08/04/19 11:59 11:59 11:59 11:59 Weight 190 lb 168 lb 1 oz - Constitutional chronically ill appearing - *Routine HEENT Exam Head: Present: normocephalic Eye: Present: EOMI, PERRL ENT: Present: mucous membranes dry - *Routine Neck Exam Absent: JVD - *Routine Respiratory Exam Present: decreased breath sounds - *Routine Cardiovascular Exam Present: tachycardia, irregular rhythm - *Routine Abdominal Exam Present: soft - *Routine Extremities Exam Absent: calf tenderness - *Routine Skin Exam Present: intact - *Routine Neurological Exam Present: alert, CN II-XII intact - Routine Psychiatric Exam Absent: normal affect Assessment and Plan (1) Tachycardia Current visit: Yes Status: Acute Category: Medical Code(s): R00.0 - Tachycardia, unspecified (2) Atrial flutter with rapid ventricular response Current visit: Yes Status: Acute Category: Medical Code(s): I48.92 - Unspecified atrial flutter (3) Bilateral pneumonia Current visit: Yes Status: Acute Category: Medical Code(s): J18.9 - Pneumonia, unspecified organism (4) Multiple myeloma Current visit: Yes Status: Acute Category: Medical Code(s): C90.00 - Multiple myeloma not having achieved remission (5) Renal insufficiency Current visit: No Status: Acute Category: Medical Code(s): N28.9 - Disorder of kidney and ureter, unspecified (6) Anemia Current visit: No Status: Acute Qualifiers: Anemia type: other cause Other causes of anemia: other cause, not classified Qualified Code(s): D64.89 - Other specified anemias Category: Medical Code(s): D64.9 - Anemia, unspecified
[2019-08-04 07:13] LABS: Basophils % 0.7 % (0.1-2.0); Eosinophils % 0.2 % (0.1-12.0); Hematocrit 29.6 % (42.0-52.0); Lymphocytes # 1.1 K/mm3 (0.7-4.5); Lymphocytes % 19.1 % (10-50); Mean Corpuscular HGB Conc 29.3 g/dL (31.8-35.4); Mean Corpuscular Volume 108.9 fl (80-94); Mean Platelet Volume 8.3 fl (7.4-10.4); Monocytes # 0.4 K/mm3 (0.1-1.0); Monocytes % 6.4 % (1.7-9.3); Neutrophils # 4.1 K/mm3 (1.8-7.8); Neutrophils % 73.6 % (37.0-80.0); Platelet Count 394 K/mm3 (142-424); Red Blood Count 2.72 M/mm3 (4.60-6.20); Red Cell Distribution Width 17.5 % (11.5-17.5); White Blood Count 5.6 K/mm3 (4.8-10.8)
[2019-08-04 07:30] LABS: Anion Gap 11.8 mEq/L (5-15); Calcium 8.2 mg/dL (8.5-10.1)
--- NOTE | 2019-08-04 07:36 | Progress Note ---
Subjective Date: 08/04/19 Time: 07:30 Principal diagnosis: A. fib with RVR, Pneumonia Interval history: 54 yo WM in bed in NAD. Denies chest pain. Still with cough. Doesn't elaborate on answers or speak much. Exam Vital signs and Labs for Last 24 Hours: Temp Pulse Resp BP Pulse Ox 98.2 F 81 16 113/88 95 08/03/19 20:00 08/04/19 06:00 08/03/19 20:00 08/04/19 06:00 08/04/19 06:00 Laboratory Results - last 24 hr 08/03/19 11:00: WBC 7.9, RBC 3.16 L, Hgb 10.2 L, Hct 34.3 L, MCV 108.3 H, MCH 32.2 H, MCHC 29.7 L, RDW 17.4, Plt Count 476 H, MPV 8.5, Neut % (Auto) 67.4, Lymph % (Auto) 24.9, Gove % (Auto) 6.7, Eos % (Auto) 0.4, Baso % (Auto) 0.7, Neut # (Auto) 5.3, Lymph # (Auto) 2.0, Gove # (Auto) 0.5, Eos # (Auto) 0.0, Baso # (Auto) 0.1 08/03/19 11:00: Sodium 141, Potassium 4.7, Chloride 103, Carbon Dioxide 27, Anion Gap 15.7 H, BUN 31 H, Creatinine 1.54 H, Estimated Creat Clear 67, Estimated GFR 47 L, Est GFR ( Amer) 57 L, Glucose 95, Calcium 8.7, Total Bilirubin 0.1 L, AST 16, ALT 25, Alkaline Phosphatase 76, Troponin I < 0.02, Total Protein 6.1 L, Albumin 3.0 L, Globulin 3.1, Albumin/Globulin Ratio 1.0 L 08/03/19 12:04: Lactate 1.9 08/04/19 05:44: WBC 5.6 D, RBC 2.72 L, Hct 29.6 L, MCV 108.9 H, MCH 31.9 H, MCHC 29.3 L, RDW 17.5, Plt Count 394, MPV 8.3, Neut % (Auto) 73.6, Lymph % (Auto) 19.1, Gove % (Auto) 6.4, Eos % (Auto) 0.2, Baso % (Auto) 0.7, Neut # (Auto) 4.1, Lymph # (Auto) 1.1, Gove # (Auto) 0.4, Eos # (Auto) 0.0, Baso # (Auto) 0.0 I & O for Last 24 hours: Intake & Output 08/01/19 08/02/19 08/03/19 08/04/19 11:59 11:59 11:59 11:59 Intake Total 641 / 641 Balance 641 / 641 Weight 190 lb 170 lb 2 oz - *Routine Respiratory Exam Present: decreased breath sounds, rhonchi. Absent: accessory muscle use, rales, wheezes - *Routine Cardiovascular Exam Present: irregular rhythm. Absent: murmur, gallop, rubs - *Routine Extremities Exam Present: edema. Absent: calf tenderness - *Routine Neurological Exam Present: alert, moving all extremities Progress Note: A&P (1) Tachycardia Status: Acute Current Visit: Yes (2) Atrial flutter with rapid ventricular response Status: Acute Current Visit: Yes (3) Bilateral pneumonia Status: Acute Current Visit: Yes (4) Multiple myeloma Status: Acute Current Visit: Yes (5) Renal insufficiency Status: Acute Current Visit: No Assessment and Plan for All Diagnoses:: 1. A. flutter, likely related to pneumonia, with rate of 70-75 bpm. Will switch Diltiazem to PO. CHADS-VASC score of 1, recommend ASA for now. Consider cardioversion to NSR prior to discharge, if it doesn't occur spontaneously, but would wait until pneumonia has improved. 2. Echo today. Further recommendations to follow pending results. 3. Pneumonia, on Abx per PCP
[2019-08-04 07:41] LABS: Hemoglobin 8.5 g/dL (14.1-18.0)
--- NOTE | 2019-08-04 08:52 | Discharge Summary ---
General - General Admission date:: 08/03/19 Discharge date: 08/04/19 HPI HPI: 54-year-old male patient sitting with bed this morning respirations easy even, denies any needs or pain at this time. Discussed discharge back to [place], patient is agreeable to this. this wm sent from [facility] with overall weakness and tachycardia - pt was seen in the ed - to ed per squad pt sent from [place] for eval due to rapid heart rate of 150s pt denies any other c/o at present. pt with redness noted to abd, swelling to feet and ankles. pt recently dx with pneumonia and chf currently taking augmentin and torsemide.pt was seen by card -?History of schizophrenia 2. NH resident 3. ?HTN 4. CKD, stage 2 currently 5. Chronic anemia 6. Multiple myeloma with multiple compression fractures A. Intrathecal pain pump, followed by Dr morrow 54 [facility] resident sent to ER for evaluation of tachycardia, cough and edema. Poor historian but does endorse some chest discomfort and neck fullness. EKG shows tachycardia at 154 bpm which appears to be a. flutter. Unresponsive to IV lopressor 5 mg X 2. Pt with congestive cough and reportedly recently treated for pneumonia. Initial troponin normal. CXR shows bilateral pneumonia without CHF. History of multiple myeloma and Hospice care. Hospital Course Hospital Course: this wm sent from [facility] with overall weakness and tachycardia - pt was seen in the ed - to ed per squad pt sent from [place] for eval due to rapid heart rate of 150s pt denies any other c/o at present. pt with redness noted to abd, swelling to feet and ankles. pt recently dx with pneumonia and chf currently taking augmentin and torsemide.pt was seen by card -?History of schizophrenia 2. NH resident 3. ?HTN 4. CKD, stage 2 currently 5. Chronic anemia 6. Multiple myeloma with multiple compression fractures A. Intrathecal pain pump, followed by Dr morrow 54 [facility] resident sent to ER for evaluation of tachycardia, cough and edema. Poor historian but does endorse some chest discomfort and neck fullness. EKG shows tachycardia at 154 bpm which appears to be a. flutter. Unresponsive to IV lopressor 5 mg X 2. Pt with congestive cough and reportedly recently treated for pneumonia. Initial troponin normal. CXR shows bilateral pneumonia without CHF. History of multiple myeloma and Hospice care. Cardiology has seen this morning and recommend: 1. A. flutter, likely related to pneumonia, with rate of 70-75 bpm. Will switch Diltiazem to PO. CHADS-VASC score of 1, recommend ASA for now. Consider cardioversion to NSR prior to discharge, if it doesn't occur spontaneously, but would wait until pneumonia has improved. 2. Echo today. Further recommendations to follow pending results. 3. Pneumonia, on Abx per PCP Chest x-ray showed bilateral lower lobe pneumonia and cardiomegaly. During the night he received Levaquin IV. Will discharge back to [place] with Levaquin p.o. for 7 days. He was also on Cardizem IV for A. fib with RVR this morning pulse has decreased to 100, will stop IV and resume Cardizem p.o. Objective Vital signs: Temp Pulse Resp BP Pulse Ox 97.8 F 110 H 16 113/88 95 08/04/19 08:00 08/04/19 08:30 08/03/19 20:00 08/04/19 06:00 08/04/19 06:00 no acute distress - *Routine HEENT Exam Head: Present: normocephalic, atraumatic Eye: Present: EOMI, PERRL, normal accommodation ENT: Present: mucous membranes dry - *Routine Neck Exam Present: full ROM, trachea midline. Absent: tracheal deviation - *Routine Respiratory Exam Present: decreased breath sounds, rhonchi. Absent: accessory muscle use - *Routine Cardiovascular Exam Present: irregular rhythm - *Routine Abdominal Exam Present: soft, normoactive bowel sounds. Absent: tenderness, firm - *Routine Extremities Exam Present: pulses intact. Absent: normal capillary refill, Alden's sign - Routine Back/Spine/Pelvis Exam Back/Spine: Present: full ROM. Absent: CVA tenderness - *Routine Skin Exam Present: intact. Absent: cyanosis, jaundice - *Routine Neurological Exam Present: alert, CN II-XII intact. Absent: hemineglect - Routine Psychiatric Exam Present: normal affect. Absent: auditory hallucinations, visual hallucinations Results Labs on day of discharge: Labs from last 24 hours 08/04/19 08/04/19 08/03/19 05:44 05:44 12:04 WBC 5.6 D RBC 2.72 L Hgb 8.5 L D Hct 29.6 L MCV 108.9 H MCH 31.9 H MCHC 29.3 L RDW 17.5 Plt Count 394 MPV 8.3 Neut % (Auto) 73.6 Lymph % (Auto) 19.1 Harlan % (Auto) 6.4 Eos % (Auto) 0.2 Baso % (Auto) 0.7 Neut # (Auto) 4.1 Lymph # (Auto) 1.1 Harlan # (Auto) 0.4 Eos # (Auto) 0.0 Baso # (Auto) 0.0 Sodium 140 Potassium 4.8 Chloride 105 Carbon Dioxide 28 Anion Gap 11.8 BUN 25 H Creatinine 1.27 Estimated Creat Clear 73 Estimated GFR 59 Est GFR ( Amer) 72 D Glucose 79 Lactate 1.9 Calcium 8.2 L Total Bilirubin AST ALT Alkaline Phosphatase Troponin I Total Protein Albumin Globulin Albumin/Globulin Ratio 08/03/19 08/03/19 11:00 11:00 WBC 7.9 RBC 3.16 L Hgb 10.2 L Hct 34.3 L MCV 108.3 H MCH 32.2 H MCHC 29.7 L RDW 17.4 Plt Count 476 H MPV 8.5 Neut % (Auto) 67.4 Lymph % (Auto) 24.9 Harlan % (Auto) 6.7 Eos % (Auto) 0.4 Baso % (Auto) 0.7 Neut # (Auto) 5.3 Lymph # (Auto) 2.0 Harlan # (Auto) 0.5 Eos # (Auto) 0.0 Baso # (Auto) 0.1 Sodium 141 Potassium 4.7 Chloride 103 Carbon Dioxide 27 Anion Gap 15.7 H BUN 31 H Creatinine 1.54 H Estimated Creat Clear 67 Estimated GFR 47 L Est GFR ( Amer) 57 L Glucose 95 Lactate Calcium 8.7 Total Bilirubin 0.1 L AST 16 ALT 25 Alkaline Phosphatase 76 Troponin I < 0.02 Total Protein 6.1 L Albumin 3.0 L Globulin 3.1 Albumin/Globulin Ratio 1.0 L - Additional Comments Rounded with Dr. Rios, all orders per Dr. Rios. We will discharge back to [place] today with p.o. Levaquin for 7 days DS: Diagnosis - Discharge Diagnosis (1) Tachycardia Status: Acute (2) Atrial flutter with rapid ventricular response Status: Acute (3) Bilateral pneumonia Status: Acute (4) Multiple myeloma Status: Acute (5) Renal insufficiency Status: Acute (6) Anemia Status: Acute Discharge Plan - Patient Discharge Instructions ACTIVITY: Continue current activity DIET: continue same diet Patient Instructions: Pneumonia-Adult, Multiple Myeloma, Tachycardia, Atrial Flutter, DI for Pneumonia -- Adult, DI for Atrial Flutter, DI for Tachycardia - Follow up Plan Follow up with: Davis Rios MD [Primary Care Provider] - Disposition: [facility] Home Medications: Home Medications Medication Instructions Recorded Confirmed Type Acetaminophen [Acetaminophen 325mg 650 mg PO Q4HP PRN 01/01/19 08/03/19 History tab] Acyclovir [Zovirax] 400 mg PO DAILY 01/01/19 08/03/19 History Dexamethasone [Decadron] 2 mg PO DAILY 01/01/19 08/03/19 History Lactulose [Lactulose 10gm/15ml 10 gm PO DAILY 01/01/19 08/03/19 History Oral Soln] Ondansetron HCl [Ondansetron 4mg 4 mg PO ACHS 05/05/19 08/03/19 History Tablet] Pantoprazole Sodium [Protonix 40mg 40 mg PO BID 05/05/19 08/03/19 History tablet] dilTIAZem HCl [Diltiazem ER] 120 mg PO DAILY 05/05/19 08/03/19 History Allopurinol [Allopurinol 300mg 300 mg PO DAILY 08/03/19 08/03/19 History tablet] Gabapentin [Gabapentin 300mg Cap] 300 mg PO BID 08/03/19 08/03/19 History Guaifenesin/Dextromethorphan 15 ml PO Q4HP PRN 08/03/19 08/03/19 History [Robafen Dm Cough Syrup] Hyoscyamine Sulfate 0.125 mg PO BIDP PRN 08/03/19 08/03/19 History Ipratropium/Albuterol Sulfate 3 ml IH Q6HP PRN 08/03/19 08/03/19 History [Iprat-Albut 0.5-3(2.5) mg/3 ml] Loperamide HCl [Loperamide] 2 - 4 mg PO Q6HP PRN 08/03/19 08/03/19 History Loratadine [Claritin] 10 mg PO DAILY 08/03/19 08/03/19 History Torsemide [Demadex 20mg tablet] 20 mg PO TUFR 08/03/19 08/03/19 History diphenhydrAMINE HCl 25 mg PO Q6HP PRN 08/03/19 08/03/19 History [Diphenhydramine HCl] risperiDONE [Risperdal 1mg Tablet] 1 mg PO HS 08/03/19 08/03/19 History risperiDONE [Risperidone] 0.5 mg PO DAILY 08/03/19 08/03/19 History levoFLOXacin [Levaquin 750mg 750 mg PO DAILY 7 Days #7 tab 08/04/19 Rx tablet] Prescriptions/Medication Reconciliation: New levoFLOXacin [Levaquin 750mg tablet] 750 mg PO DAILY 7 Days #7 tab Continued Dexamethasone [Decadron] 2 mg PO DAILY Acyclovir [Zovirax] 400 mg PO DAILY Acetaminophen [Acetaminophen 325mg tab] 650 mg PO Q4HP PRN PRN Reason: As Needed For Fever Or Pain Pantoprazole Sodium [Protonix 40mg tablet] 40 mg PO BID Ondansetron HCl [Ondansetron 4mg Tablet] 4 mg PO ACHS dilTIAZem HCl [Diltiazem ER] 120 mg PO DAILY Allopurinol [Allopurinol 300mg tablet] 300 mg PO DAILY diphenhydrAMINE HCl [Diphenhydramine HCl] 25 mg PO Q6HP PRN PRN Reason: Itching Gabapentin [Gabapentin 300mg Cap] 300 mg PO BID Guaifenesin/Dextromethorphan [Robafen Dm Cough Syrup] 15 ml PO Q4HP PRN PRN Reason: Cough Hyoscyamine Sulfate 0.125 mg PO BIDP PRN PRN Reason: Secretions Loperamide HCl [Loperamide] 2 - 4 mg PO Q6HP PRN PRN Reason: Diarrhea Loratadine [Claritin] 10 mg PO DAILY risperiDONE [Risperdal 1mg Tablet] 1 mg PO HS risperiDONE [Risperidone] 0.5 mg PO DAILY Torsemide [Demadex 20mg tablet] 20 mg PO TUFR Lactulose [Lactulose 10gm/15ml Oral Soln] 10 gm PO DAILY Ipratropium/Albuterol Sulfate [Iprat-Albut 0.5-3(2.5) mg/3 ml] 3 ml IH Q6HP PRN PRN Reason: Shortness Of Breath - Problem Reconciliation Problems Reviewed?: Yes
[2019-08-04 09:23] VITALS: BP 104/80
--- NOTE | 2019-08-04 18:38 | Electrocardiograph Report ---
APPROVED REPORT Exam: Resting ECG HR:154 bpm ECG Measurements Heart Rate 154 AXES MO 144 P QRSd 140 QRS 28 QT 276 T174 QTc 442 <Conclusion> SVT Abnormal ECG Electronically signed by : Tarik Toure, 08/04/2019 18:38:30
--- NOTE | 2019-08-04 20:19 | Cardiology Report ---
APPROVED REPORT EXAM: Comprehensive 2D, Doppler, and color-flow Echocardiogram [employer]: Stacey Polanco RDCS Ht: 5 ft 4 in Wt: 170lbs BSA: 1.83 BP: 114/84 mmHg Indications: Atrial Fibrillation (new onset), Atrial Flutter, Hypertension/HDD 2D Dimensions LVOT 1.80 cm (M/F) 1.5-2.5 M-Mode Dimensions RVDd 1.70 cm (0.9-2.6)LA Diam 4.00 cm (1.9-4.0) LVDd 4.70 cm (3.5-5.7)Ao Diam 3.30 cm (2.0-3.7) LVDs 2.50 cm (3.5-5.7)AV Cusp 2.00 cm (1.5-2.6) IVSd 1.50 cm (0.6-1.1)PWd 1.10 cm (0.6-1.1) EF (Teich) 78.10% FS 46.80% EDV (Teich) 102.00 mLESV (Teich) 22.30 mL LV Diastology E/A Ratio 2.2MED E' 8.68 (< 7 cm/sec) E'/MED E' Ratio14.30 (>14)LAT E' 15.10 (<10 cm/sec) E/LAT E' Ratio 8.20 (>14) Mitral Valve MV E Max Sb. 124.00 (40-130 cm/s)MV A Velocity 55.30 (40-130 cm/s) E/A Ratio 2.20 Tricuspid Valve TR P. [id number] cm/sRAP Estimate 10.00 mmHg RVSP 34.00 mmHg Left Ventricle Left atrium is moderately enlarged, left ventricle is normal size, mild concentric left ventricular hypertrophy, visually estimated ejection fraction 55% with no regional wall motion abnormality. Diastolic parameters are inconclusive. Right Ventricle Right atrium and right ventricle mildly enlarged with normal contractility. Aortic Valve Aortic valve is thickened and calcified leaflet continue to display good mobility, there is no aortic stenosis, there is mild aortic insufficiency. Mitral Valve Mitral valve is minimally thickened, there is no mitral stenosis, there is moderate mitral regurgitation. Tricuspid Valve Tricuspid valve is grossly normal, there is no tricuspid stenosis, there is mild tricuspid regurgitation. Pulmonic Valve Pulmonic valve is poorly visualized. Great Vessels Aortic root is normal size. Pericardium No significant pericardial effusion noted. Conclusion 1. Biatrial enlargement, normal left ventricular size, mild concentric left ventricular hypertrophy, visually estimated ejection fraction 55% with no regional wall motion abnormality, diastolic parameters are inconclusive. 2. Mildly enlarged right ventricle with normal contractility. 3. Mild aortic, moderate mitral and mild tricuspid regurgitation. 4. No significant pericardial effusion noted. Electronically signed by : Tushar Espinosa, 08/04/2019 20:18:36
== END 2019-08-04 11:26 | disposition hospice, inpatient (51) | DRG 194 ==
LOC: ER 10:53 → 2ND 13:09
PROVIDERS: ADMIT Emergency Medicine; ATTEND Emergency Medicine
CPT/HCPCS: J1956